=== PATIENT | male | born 1965 | race Caucasian/White ===

== ENCOUNTER → 2025-03-29 | Outpatient (CLI) | payer SELFPAY | END | disposition home or self-care (01) | DX: R10.11 Right upper quadrant pain (principal) | CPT/HCPCS: 76705 ==

== ENCOUNTER → 2025-04-23 | Outpatient (CLI) | payer OTHER, SELFPAY ==
[2025-04-23 18:35] LABS: Ferritin 95 ng/mL (37-417)
[2025-04-23 19:20] LABS: CRP < 3.00 mg/L (0.0-3.0); Iron 91 ug/dL (65-175); LDH 198 U/L (87-241)
[2025-04-25 12:08] LABS: Anti-Chromatin <0.2 AI (0.0-0.9); Anti-Jo <0.2 AI (0.0-0.9); Anti-dsDNA Ab 3 IU/mL (0-9); SJOGREN'S Anti-SS-A test < 0.2 AI (0.0-0.9); SJOGREN'S Anti-SS-B test < 0.2 AI (0.0-0.9)
[2025-04-30 15:08] LABS: Albumin 4.2 g/dL (2.9-4.4); CMV Acute Antibody IgM < 30.0 AU/mL (0.0-29.9); Cytoplasmic Ab (C-ANCA) <1:20 titer (Neg:<1:20); EBV Acute VCA IgM < 36.0 U/mL (0.0-35.9); EBV-VCA IgG 238.0 U/mL (0.0-17.9); Gamma Globulin 1.0 g/dL (0.4-1.8); HEPATITIS B SURFACE AG Negative (Negative); Hep C Antibodies Non Reactive (Non Reactive); Immunoglobulin A 237 mg/dL (90-386); Immunoglobulin G 1073 mg/dL (603-1613); Immunoglobulin M 70 mg/dL (20-172); PROEL- TOTAL PROTEIN 7.0 g/dL (6.0-8.5); Perinuclear Ab (P-ANCA) <1:20 titer (Neg:<1:20); Testosterone, % Free 2.18 % (1.50-4.20); Testosterone, Free 16.31 ng/dL (5.00-21.00)
== END | disposition home or self-care (01) ==
LOC: LAB 16:32
PROVIDERS: Referring Provider Internal Medicine Gastroenterology; Visit Provider Internal Medicine Gastroenterology
DX: R16.2 Hepatomegaly with splenomegaly, not elsewhere classified (principal)
CPT/HCPCS: 36415; 80074; 82085; 82728; 82784; 83036; 83516; 83540; 83615; 84165; 84402; 84403; 85652; 86037; 86140; 86225; 86235; 86255; 86334; 86644; 86645; 86664; 86665

== ENCOUNTER → 2025-05-10 | Outpatient (CLI) | payer OTHER, SELFPAY ==
--- OUTSIDE RECORDS SUMMARY | 2025-05-10 07:15 | XMS RPT_ITS | CCD ---
Author Organization [facility] Care Team Providers Care Optical Systems Engineer Name Role Phone OprisesArlette hyde MD Primary Care Provider OprArlette sharma MD Primary Care Provider Stewart LOAIZA, Nael Unavailable HOLLY SOLORZANO Attending Unavailable OPRISESCU, ARLETTE M Referring Unavailable OPRISESCU, ARLETTE M Primary Care Unavailable Kristopher LOAIZA, Michelle Patel Unavailable [phone] OPRISESCU, ARLETTE Primary Care Provider OPRISESCU, ARLETTE Attending Provider OPRISESCU, ARLETTE Referring Provider OPRISESCU, ARLETTE M Primary Care Unavailable OPRISESCU, ARLETTE M Referring Unavailable OPRISESCU, ARLETTE M Primary Care Unavailable NAEL WILLIAM Referring Unavailable OPRISESCU, ARLETTE Vanessa Primary Care Unavailable SELF Referring Unavailable OPRISESCU, ARLETTE M Attending Unavailable OPRISESCU, ARLETTE M Primary Care Unavailable OPRISESCU, ARLETTE M Attending Unavailable Friend Dr. Destin LEWIS Attending Provider OPRISESCU, ARLETTE Primary Care Provider Unavailabl e OPRISESCU, ARLETTE Referring Provider Unavailable FriendDestin Attending Unavailable SHIVERS, RI Referring Unavailable SHIVERS, RI Primary Care Unavailable SHIVERS, RI Referring Unavailable SHIVERS, RI Attending Unavailable SHIVERS, RI Primary Care Unavailable FriendDestin Referring Unavailable FriendDestin Attending Unavailable Friend Dr. Destin LEWIS Referring Provider Problems Active Problems Problem Classification Problem Date Documented Da te Episodic/Chronic Abdominal pain (3 sources) Right upper quadrant pain; Translations: [Right upper quadrant pain] Onset: 04-25-2025 11-26-2024 Episodic Administrative/social admission (6 sources) Patient encounter status; Translations: [Persons encountering health services in other specified circumstances] 11-22-2023 Episodic Blindness and vision defects (1 source) Eye / vision finding; Translations: [Unspecified visual disturbance] 11-22-2023 Episodic Diabetes mellitus without complication (1 source) Impaired fasting glycemia; Translations: [Impaired fasting glucose] 09-12-2024 Episodic Disorders of lipid metabolism (7 sources) Hypercholesterolemi a; Translations: [Pure hypercholesterolemi a, unspecified] Onset: 09-11-2024 11-22-2023 Chronic Headache; including migraine (1 source) Headache; Translations: [Headache around the eyes] 11-13-2024 Episodic Heart valve disorders (2 sources) Heart murmur; Translations: [Cardiac murmur, unspecified] 11-26-2024 Episodic Malaise and fatigue (1 source) Fatigue; Translations: [Other fatigue] 11-22-2023 Episodic Nutritional deficiencies (3 sources) Vitamin D deficiency; Translations: [Vitamin D deficiency, unspecified] Onset: 09-11-2024 11-22-2023 Chronic Other eye disorders (1 source) Disorder of eye; Translations: [Unspecified disorder of eye and adnexa] 11-13-2024 Episodic Other gastrointestinal disorders (4 sources) Abdominal bloating; Translations: [Abdominal distension (gaseous)] 04-23-2025 Episodic Other gastrointestinal disorders (1 source) Abdominal distension (gaseous); Translations: [Abdominal distension (gaseous)] Onset: 04-23-2025 Episodic Other liver diseases (2 sources) Steatosis of liver; Translations: [Fatty (change of) liver, not elsewhere classified] 04-01-2025 Chronic Other liver diseases (4 sources) Hepatosplenomegaly; Translations: [Hepatomegaly with splenomegaly, not elsewhere classified] 04-23-2025 Episodic Other liver diseases (1 source) Hepatomegaly with splenomegaly, not elsewhere classified; Translations: [Hepatomegaly with splenomegaly, not elsewhere classified] Onset: 04-23-2025 Episodic Other lower respiratory disease (2 sources) Snoring; Translations: [Snoring] 11-22-2023 Episodic Other non-traumatic joint disorders (1 source) Pain in right knee; Translations: [Pain in joint, lower leg] 11-22-2023 Episodic Other upper respiratory disease (2 sources) Other specified disorders of nose and nasal sinuses; Translations: [Other disease of nasal cavity and sinuses] Onset: 11-13-2024 10-09-2024 Episodic Residual codes; unclassified (1 source) Abnormal sensation; Translations: [Other symptoms and signs involving general sensations and perceptions] 11-13-2024 Episodic Spondylosis; intervertebral disc disorders; other back problems (1 source) Low back pain; Translations: [Lumbar pain] 11-22-2023 Episodic Past or Other Problems Problem Classification Problem Date Documented Da te Episodic/Chronic Immunizations and screening for infectious disease (6 sources) Viral screening status; Translations: [Encounter for screening for other viral diseases] Onset: 09-11-2024 11-22-2023 Episodic Other screening for suspected conditions (not mental disorders or infectious disease) (1 source) Encounter for screening for malignant neoplasm of prostate; Translations: [Screening for prostate cancer] Onset: 09-11-2024 Episodic Results Test Name Value Interpretation Reference Range Facility [facility] 04-30-2025 Atypical pANCA <1:20 Normal Neg:<1:20 [facility] Comment on above: Result Comment: The atypical pANCA pattern has been observed in a significant percentage of patients with ulcerative colitis, primary sclerosing cholangitis and autoimmune hepatitis. Performed By: #### L 501.6710, L501.9985, L3100.5310, L3410.2400, L503.6150, L3400.1500, L101.9900, L3100.7000, L3000.0375, L3100.5850, L503.6550, L3100.3425, L3400.1490, L3300.1200, L504.2610, L3100.5440 #### [facility] [address] [place], [place], [id number] Cytoplasmic Ab <1:20 Normal Neg:<1:20 [facility] Comment on above: Performed By: #### L 501.6710, L501.9985, L3100.5310, L3410.2400, L503.6150, L3400.1500, L101.9900, L3100.7000, L3000.0375, L3100.5850, L503.6550, L3100.3425, L3400.1490, L3300.1200, L504.2610, L3100.5440 #### [facility] [address] [facility] [place], [place], [id number] Perinuclear Ab. <1:20 Normal Neg:<1:20 [facility] Comment on above: Result Comment: The presence of positive fluorescence exhibiting P-ANCA or C-ANCA patterns alone is not specific for the diagnosis of Inocencia's Granulomatosis (WG) or microscopic polyangiitis. Decisions about treatment should not be based solely on ANCA IFA results. The International ANCA Group Consensus recommends follow up testing of positive sera with both NJ- 3 and MPO-ANCA enzyme immunoassays. As many as 5% serum samples are positive only by EIA. Ref. AM J Clin Pathol 1999;111:507-513. Performed By: #### L 501.6710, L501.9985, L3100.5310, L3410.2400, L503.6150, L3400.1500, L101.9900, L3100.7000, L3000.0375, L3100.5850, L503.6550, L3100.3425, L3400.1490, L3300.1200, L504.2610, L3100.5440 #### [facility] [address] [facility] [place], [address] Aldolaseon 04-30-2025 ALDOLASE 3.6 U/L Normal 3.3-10.3 [facility] Comment on above: Result Comment: Perf ormed at: [facility] [address] [id number] Ship Fastener: Tom Salazar PhD, Phone: [phone] Performed at: [facility] [address] [id number] Ship Fastener: Diane Navarro MD, Phone: [phone] Performed By: #### L 501.6710, L501.9985, L3100.5310, L3410.2400, L503.6150, L3400.1500, L101.9900, L3100.7000, L3000.0375, L3100.5850, L503.6550, L3100.3425, L3400.1490, L3300.1200, L504.2610, L3100.5440 #### [facility] [address] [place], [place], [id number] CMV Acute Antibody IgMon CMV Ab, IgM < 30.0 Normal 0.0-29.9 [facility] Comment on above: Result Comment: Nega tive <30.0 Equivocal 30.0 - 34.9 Positive >34.9 A positive result is generally indicative of acute infection, reactivation or persistent IgM production. Performed By: #### L 501.6710, L501.9985, L3100.5310, L3410.2400, L503.6150, L3400.1500, L101.9900, L3100.7000, L3000.0375, L3100.5850, L503.6550, L3100.3425, L3400.1490, L3300.1200, L504.2610, L3100.5440 #### [facility] [address] [facility] [place], [address] CMV Antibody IgGon CMV AB IgG > 10.00 High 0.00-0.59 [facility] Comment on above: Result Comment: Nega tive <0.60 Equivocal 0.60 - 0.69 Positive >0.69 Performed By: #### L 501.6710, L501.9985, L3100.5310, L3410.2400, L503.6150, L3400.1500, L101.9900, L3100.7000, L3000.0375, L3100.5850, L503.6550, L3100.3425, L3400.1490, L3300.1200, L504.2610, L3100.5440 #### [facility] [address] [facility] [place], [address] Celiac Disease Profileon ENDOMYSIAL IGA Negative Normal Negative [facility] Comment on above: Performed By: #### L 501.6710, L501.9985, L3100.5310, L3410.2400, L503.6150, L3400.1500, L101.9900, L3100.7000, L3000.0375, L3100.5850, L503.6550, L3100.3425, L3400.1490, L3300.1200, L504.2610, L3100.5440 #### [facility] [address] [facility] [place], [place], [id number] tTG IGA <2 Normal 0-3 [facility] Comment on above: Result Comment: Nega tive 0 - 3 Weak Positive 4 - 10 Positive >10 Tissue Transglutaminase (tTG) has been identified as the endomysial antigen. Studies have demonstr- ated that endomysial IgA antibodies have over 99% specificity for gluten sensitive enteropathy. Performed By: #### L 501.6710, L501.9985, L3100.5310, L3410.2400, L503.6150, L3400.1500, L101.9900, L3100.7000, L3000.0375, L3100.5850, L503.6550, L3100.3425, L3400.1490, L3300.1200, L504.2610, L3100.5440 #### [facility] [address] [facility] [place], [address] EBV Acute Prof IgG / IgMon 0 8- EB Ab VCA, IgG 238.0 U/mL High 0.0-17.9 [facility] Comment on above: Result Comment: Nega tive <18.0 Equivocal 18.0 - 21.9 Positive >21.9 Performed By: #### L 501.6710, L501.9985, L3100.5310, L3410.2400, L503.6150, L3400.1500, L101.9900, L3100.7000, L3000.0375, L3100.5850, L503.6550, L3100.3425, L3400.1490, L3300.1200, L504.2610, L3100.5440 #### [facility] [address] [place], [address] EBV Ab VCA, IgM < 36.0 Normal 0.0-35.9 [facility] Comment on above: Result Comment: Nega tive <36.0 Equivocal 36.0 - 43.9 Positive >43.9 Performed By: #### L 501.6710, L501.9985, L3100.5310, L3410.2400, L503.6150, L3400.1500, L101.9900, L3100.7000, L3000.0375, L3100.5850, L503.6550, L3100.3425, L3400.1490, L3300.1200, L504.2610, L3100.5440 #### [facility] [address] [place], [address] EBV NuAg Ab,IgG > 600.0 High 0.0-17.9 [facility] Comment on above: Result Comment: Nega tive <18.0 Equivocal 18.0 - 21.9 Positive >21.9 Performed By: #### L 501.6710, L501.9985, L3100.5310, L3410.2400, L503.6150, L3400.1500, L101.9900, L3100.7000, L3000.0375, L3100.5850, L503.6550, L3100.3425, L3400.1490, L3300.1200, L504.2610, L3100.5440 #### [facility] [address] [place], [address] INTERPRETATION Comment Normal . [facility] Comment on above: Result Comment: EBV Interpretation Chart Viveros: Antibody Present + Antibody Absent - Interpretation VCA-IgM VCA-IgG EBNA-IgG No previous infection/ - - - Susceptible Primary infection (new + + - or recent) Past Infection +or- + + See comment below* + - - *Results indicate infection with EBV at some time however cannot predict the timing of the infection since antibodies to EBNA usually develop after primary infection or, alternatively, approximately 5-10% of patients with EBV never develop antibodies to EBNA. Performed By: #### L 501.6710, L501.9985, L3100.5310, L3410.2400, L503.6150, L3400.1500, L101.9900, L3100.7000, L3000.0375, L3100.5850, L503.6550, L3100.3425, L3400.1490, L3300.1200, L504.2610, L3100.5440 #### [facility] [address] [place], [place], [id number] Hepatitis Panel Acuteon 08-0 COMMENT Comment Normal . [facility] Comment on above: Result Comment: Not infected with HCV unless early or acute infection is suspected (which may be delayed in an immunocompromised individual), or other evidence exists to indicate HCV infection. Performed By: #### L 501.6710, L501.9985, L3100.5310, L3410.2400, L503.6150, L3400.1500, L101.9900, L3100.7000, L3000.0375, L3100.5850, L503.6550, L3100.3425, L3400.1490, L3300.1200, L504.2610, L3100.5440 #### [facility] [address] [place], [address] HEP B CORE,IgM Negative Normal Negative [facility] Comment on above: Performed By: #### L 501.6710, L501.9985, L3100.5310, L3410.2400, L503.6150, L3400.1500, L101.9900, L3100.7000, L3000.0375, L3100.5850, L503.6550, L3100.3425, L3400.1490, L3300.1200, L504.2610, L3100.5440 #### [facility] [address] [place], [place], [id number] HEP B SURF AG Negative Normal Negative [facility] Comment on above: Performed By: #### L 501.6710, L501.9985, L3100.5310, L3410.2400, L503.6150, L3400.1500, L101.9900, L3100.7000, L3000.0375, L3100.5850, L503.6550, L3100.3425, L3400.1490, L3300.1200, L504.2610, L3100.5440 #### [facility] [address] [place], [place], [id number] HEP C VIRUS AB Non-Reactive Normal Non Reactive [facility] Comment on above: Performed By: #### L 501.6710, L501.9985, L3100.5310, L3410.2400, L503.6150, L3400.1500, L101.9900, L3100.7000, L3000.0375, L3100.5850, L503.6550, L3100.3425, L3400.1490, L3300.1200, L504.2610, L3100.5440 #### [facility] [address] [place], [address] HEPATITIS A-IgM Negative Normal Negative [facility] Comment on above: Result Comment: A ne gative anti-HAV IgM result suggests no recent or current HAV infection. Performed By: #### L 501.6710, L501.9985, L3100.5310, L3410.2400, L503.6150, L3400.1500, L101.9900, L3100.7000, L3000.0375, L3100.5850, L503.6550, L3100.3425, L3400.1490, L3300.1200, L504.2610, L3100.5440 #### [facility] [address] [place], [address] HAILEE + Protein Elect, Serumon 04-30-2025 Albumin [Mass/Vol] 4.2 g/dL Normal 2.9-4.4 [facility] Comment on above: Order Comment: N Performed By: #### L 501.6710, L501.9985, L3100.5310, L3410.2400, L503.6150, L3400.1500, L101.9900, L3100.7000, L3000.0375, L3100.5850, L503.6550, L3100.3425, L3400.1490, L3300.1200, L504.2610, L3100.5440 #### [facility] [address] [place], [address] (864) Albumin/Globulin [Mass ratio] 1.6 {ratio} Normal 0.7-1.7 [facility] Comment on above: Order Comment: N Performed By: #### L 501.6710, L501.9985, L3100.5310, L3410.2400, L503.6150, L3400.1500, L101.9900, L3100.7000, L3000.0375, L3100.5850, L503.6550, L3100.3425, L3400.1490, L3300.1200, L504.2610, L3100.5440 #### [facility] [address] [facility] [place], [address] MFCHY-6-ROXI 0.2 g/dL Normal 0.0-0.4 [facility] Comment on above: Order Comment: N Performed By: #### L 501.6710, L501.9985, L3100.5310, L3410.2400, L503.6150, L3400.1500, L101.9900, L3100.7000, L3000.0375, L3100.5850, L503.6550, L3100.3425, L3400.1490, L3300.1200, L504.2610, L3100.5440 #### [facility] [address] [facility] [place], [address] (396) ZXCYG-5-IOCA 0.6 g/dL Normal 0.4-1.0 [facility] Comment on above: Order Comment: N Performed By: #### L 501.6710, L501.9985, L3100.5310, L3410.2400, L503.6150, L3400.1500, L101.9900, L3100.7000, L3000.0375, L3100.5850, L503.6550, L3100.3425, L3400.1490, L3300.1200, L504.2610, L3100.5440 #### [facility] [address] [place], [address] BETA GLOBULIN 1.0 g/dL Normal 0.7-1.3 [facility] Comment on above: Order Comment: N Performed By: #### L 501.6710, L501.9985, L3100.5310, L3410.2400, L503.6150, L3400.1500, L101.9900, L3100.7000, L3000.0375, L3100.5850, L503.6550, L3100.3425, L3400.1490, L3300.1200, L504.2610, L3100.5440 #### [facility] [address] [facility] [place], [address] GAMMA GLOBULIN 1.0 g/dL Normal 0.4-1.8 [facility] Comment on above: Order Comment: N Performed By: #### L 501.6710, L501.9985, L3100.5310, L3410.2400, L503.6150, L3400.1500, L101.9900, L3100.7000, L3000.0375, L3100.5850, L503.6550, L3100.3425, L3400.1490, L3300.1200, L504.2610, L3100.5440 #### [facility] [address] [facility] [place], [address] Globulin (S) [Mass/Vol] 2.8 g/dL Normal 2.2-3.9 [facility] Comment on above: Order Comment: N Performed By: #### L 501.6710, L501.9985, L3100.5310, L3410.2400, L503.6150, L3400.1500, L101.9900, L3100.7000, L3000.0375, L3100.5850, L503.6550, L3100.3425, L3400.1490, L3300.1200, L504.2610, L3100.5440 #### [facility] [address] [place], [place], [id number] (569) HAILEE RESULT,S Comment Normal . [facility] Comment on above: Order Comment: N Result Comment: No m onoclonality detected. Performed By: #### L 501.6710, L501.9985, L3100.5310, L3410.2400, L503.6150, L3400.1500, L101.9900, L3100.7000, L3000.0375, L3100.5850, L503.6550, L3100.3425, L3400.1490, L3300.1200, L504.2610, L3100.5440 #### [facility] [address] [place], [address] IMMUNOGLOB A QN 237 mg/dL Normal 90-386 [facility] Comment on above: Order Comment: N Performed By: #### L 501.6710, L501.9985, L3100.5310, L3410.2400, L503.6150, L3400.1500, L101.9900, L3100.7000, L3000.0375, L3100.5850, L503.6550, L3100.3425, L3400.1490, L3300.1200, L504.2610, L3100.5440 #### [facility] [address] [place], [place], [id number] (013) IMMUNOGLOB G QN 1073 mg/dL Normal 603-1613 [facility] Comment on above: Order Comment: N Performed By: #### L 501.6710, L501.9985, L3100.5310, L3410.2400, L503.6150, L3400.1500, L101.9900, L3100.7000, L3000.0375, L3100.5850, L503.6550, L3100.3425, L3400.1490, L3300.1200, L504.2610, L3100.5440 #### [facility] [address] [place], [place], [id number] IMMUNOGLOB M QN 70 mg/dL Normal 20-172 [facility] Comment on above: Order Comment: N Performed By: #### L 501.6710, L501.9985, L3100.5310, L3410.2400, L503.6150, L3400.1500, L101.9900, L3100.7000, L3000.0375, L3100.5850, L503.6550, L3100.3425, L3400.1490, L3300.1200, L504.2610, L3100.5440 #### [facility] [address] [place], [place], [id number] M-Javier Not Observed Normal Not Observed [facility] Comment on above: Order Comment: N Performed By: #### L 501.6710, L501.9985, L3100.5310, L3410.2400, L503.6150, L3400.1500, L101.9900, L3100.7000, L3000.0375, L3100.5850, L503.6550, L3100.3425, L3400.1490, L3300.1200, L504.2610, L3100.5440 #### [facility] [address] [place], [place], [id number] NOTE: Comment Normal . [facility] Comment on above: Order Comment: N Result Comment: Prot ein electrophoresis scan will follow via computer, mail, or precision printing worker delivery. Performed By: #### L 501.6710, L501.9985, L3100.5310, L3410.2400, L503.6150, L3400.1500, L101.9900, L3100.7000, L3000.0375, L3100.5850, L503.6550, L3100.3425, L3400.1490, L3300.1200, L504.2610, L3100.5440 #### [facility] [address] [place], [place], [id number] (330) Protein [Mass/Vol] 7.0 g/dL Normal 6.0-8.5 [facility] Comment on above: Order Comment: N Performed By: #### L 501.6710, L501.9985, L3100.5310, L3410.2400, L503.6150, L3400.1500, L101.9900, L3100.7000, L3000.0375, L3100.5850, L503.6550, L3100.3425, L3400.1490, L3300.1200, L504.2610, L3100.5440 #### [facility] [address] [place], [address] (469) Testosterone, Total / Freeon 04-30-2025 TESTOSTER,FREE 16.31 ng/dL Normal 5.00-21.00 [facility] Comment on above: Order Comment: N Performed By: #### L 501.6710, L501.9985, L3100.5310, L3410.2400, L503.6150, L3400.1500, L101.9900, L3100.7000, L3000.0375, L3100.5850, L503.6550, L3100.3425, L3400.1490, L3300.1200, L504.2610, L3100.5440 #### [facility] [address] [place], [place], [id number] (885) TESTOSTER,TOTAL 748 ng/dL Normal 264-916 [facility] Comment on above: Order Comment: N Result Comment: Adul t male reference interval is based on a population of healthy nonobese males (BMI <30) between 19 and 39 years old. kenroy Flor.al. JCEM 2017,102;1209-9894. PMID: [id number]. Performed By: #### L 501.6710, L501.9985, L3100.5310, L3410.2400, L503.6150, L3400.1500, L101.9900, L3100.7000, L3000.0375, L3100.5850, L503.6550, L3100.3425, L3400.1490, L3300.1200, L504.2610, L3100.5440 #### [facility] [address] [place], [place], [id number] TESTOSTERONE,%F 2.18 Normal 1.50-4.20 [facility] Comment on above: Order Comment: N Performed By: #### L 501.6710, L501.9985, L3100.5310, L3410.2400, L503.6150, L3400.1500, L101.9900, L3100.7000, L3000.0375, L3100.5850, L503.6550, L3100.3425, L3400.1490, L3300.1200, L504.2610, L3100.5440 #### [facility] [address] [place], [place], [id number] EFRAÍN Comprehensive Panelon ANTI-DNA (DS)AB 3 IU/mL Normal 0-9 [facility] Comment on above: Result Comment: Nega tive <5 Equivocal 5 - 9 Positive >9 Performed By: #### L 501.6710, L501.9985, L3100.5310, L3410.2400, L503.6150, L3400.1500, L101.9900, L3100.7000, L3000.0375, L3100.5850, L503.6550, L3100.3425, L3400.1490, L3300.1200, L504.2610, L3100.5440 #### [facility] [address] [place], [place], [id number] ANTI-SS-A < 0.2 Normal 0.0-0.9 [facility] Comment on above: Performed By: #### L 501.6710, L501.9985, L3100.5310, L3410.2400, L503.6150, L3400.1500, L101.9900, L3100.7000, L3000.0375, L3100.5850, L503.6550, L3100.3425, L3400.1490, L3300.1200, L504.2610, L3100.5440 #### [facility] [address] [place], [place], [id number] ANTI-SS-B < 0.2 Normal 0.0-0.9 [facility] Comment on above: Performed By: #### L 501.6710, L501.9985, L3100.5310, L3410.2400, L503.6150, L3400.1500, L101.9900, L3100.7000, L3000.0375, L3100.5850, L503.6550, L3100.3425, L3400.1490, L3300.1200, L504.2610, L3100.5440 #### [facility] [address] [facility] [place], [place], [id number] Albumin Elph [Mass/Vol]Order ed By: Destin Gupta on 04-23-2025 Albumin [Mass/Vol] 4.2 g/dL 2.9-4.4 [facility] Aldolase ser/plasOrdered By: Destin Gupta on 04-23-2025 Aldolase [Catalytic activity/Vol] 3.6 mU/mL 3.3-10.3 [facility] Comment on above: Performed at: - [facility] [address] [id number] Director: Tom Salazar PhD, Phone: [phone] at: [address] [id number] Director: Diane Navarro MD, Phone: [phone] CRPon 04-23-2025 C-REACTIVE PROT < 3.00 Normal 0.0-3.0 [facility] Comment on above: Performed By: #### L 501.6710, L501.9985, L3100.5310, L3410.2400, L503.6150, L3400.1500, L101.9900, L3100.7000, L3000.0375, L3100.5850, L503.6550, L3100.3425, L3400.1490, L3300.1200, L504.2610, L3100.5440 #### [facility] [address] [place], [address] Erythrocyte Sed Rateon 04-23 SED RATE 5 mm/hr Normal 0-20 [facility] Comment on above: Performed By: #### L 501.6710, L501.9985, L3100.5310, L3410.2400, L503.6150, L3400.1500, L101.9900, L3100.7000, L3000.0375, L3100.5850, L503.6550, L3100.3425, L3400.1490, L3300.1200, L504.2610, L3100.5440 #### [facility] [address] [place], [address] Erythrocyte sedimentation ra teOrdered By: Destin Gupta on 04-23-2025 ESR (Bld) [Velocity] 5 mm/h 0-20 [facility] Ferritinon 04-23-2025 Ferritin [Mass/Vol] 95 ng/mL Normal 37-417 [facility] Comment on above: Performed By: #### L 501.6710, L501.9985, L3100.5310, L3410.2400, L503.6150, L3400.1500, L101.9900, L3100.7000, L3000.0375, L3100.5850, L503.6550, L3100.3425, L3400.1490, L3300.1200, L504.2610, L3100.5440 #### [facility] [address] [place], [address] Free testosterone percentage Ordered By: Destin Gupta on 04-23-2025 Testosterone Free/Testosterone.total [Mass fraction] 2.18 % 1.50-4.20 [facility] Gastroenterology Visit Repor ton 04-23-2025 Gastroenterology Visit Report [facility] [address] [place] [address] OFFICE VISIT Date of Service: 04/23/25 MR#: [id number] Acct: [id number] Name: NIC GUPTA Rep #: [id number] : 1965 Provider: Destin Gupta DO Age/Sex: 59/M Location: [facility] Status: Signed Intake Intake Visit Reasons: ABDOMINAL PAIN Allergies No Known Allergies Allergy (Verified 04/23/25 15:39) Medications ???Medication ???Instructions ???Recorded ???Confirmed ???Type NK 04/23/25 04/23/25 History PFSH Medical History (Updated 04/23/25 @ 16:[address] Destin Gupta DO) Bloating Hearing problem High cholesterol Heart murmur Family History (Updated 04/23/25 @ 15:42 by Neris Louis) Mother Heart disease Social History (Updated 04/23/25 @ 15:41 by Neris Louis) Smoking Status: Former smoker alcohol intake: never substance use type: does not use what type of physical activity do you participate in: walking frequency: daily HPI HPI Details: NIC GUPTA, is a 59 M who presents to the office today for initial consult. abd US 7.. 1. Fatty infiltration of the liver. 2. Splenomegaly. *BGI established 7 pt reports that his PCP wanted him to follow up with GI after his US that showed fatty liver. Pt reports severe bloating after he eats, states it does not matter what he is eating. Pt also reports brain fog and fatigue for the past 1-2 years. ROS Const Constitutional: Positive for fatigue; No fever(s) or weight change ENT ENT: No difficulty swallowing Gastro GI: Positive for bloating and excessive flatus; No abdominal pain, belching, change in bowel habits, change in stool character, coffee ground emesis, constipation, cramping, diarrhea, heartburn, difficulty swallowing, feeling full early, incontinent of stools, Vomiting blood/hematemesis, Blood in stool, loose stools, Black,tarry stools, nausea/dyspepsia, pain with swallowing, vomiting or other Musc Musculoskeletal: Positive for joint pain, back pain, muscle weakness and stiffness Skin Skin: No yellowing of the eye or itchy eyes Psych Psychiatric: No anxiety and No depression Endo Endocrine: Positive for fatigue; No weight change Aller/Imm Allergy/Immunologic: No itchy eyes Fausto/Lymp Hematologic/Lymphatic: No easy bleeding or easy bruising Exam Const General: cooperative, healthy appearing and comfortable Nutritional Appearance: well nourished Orientation: oriented x3 [facility] Head: normal to inspection Ears: hearing grossly normal bilaterally Face and sinus: normal facial exam Eyes General: appearance normal, both eyes and all related structures Sclera: sclerae normal Neck Neck: normal visual inspection Chest Chest palpation inspection: normal inspection of the chest Resp Effort Inspection: normal respiratory effort Auscultation: Bilateral: Clear to Auscultation Cardio Rate: regular rate Rhythm: regular rhythm GI Inspection: normal to inspection Auscultation: normal bowel sounds Percussion: normal to percussion Palpation: hepatosplenomegaly Assessment and Plan Assessment and Plan (1) Hepatosplenomegaly: Status: Acute (2) Bloating: Status: Acute Plan: 59-year-old male presenting with hepatosplenomegaly, fatigue, and weakness???warrants a thorough investigation to determine the underlying cause.???The patient reports a gradual onset of fatigue and weakness over the past several months, accompanied by intermittent abdominal pain.???He notes increased difficulty with physical activity and mental tasks.???No fever, chills, or significant weight loss reported.This combination of symptoms can be associated with various conditions, including liver disease, hematologic malignancies, and infections. Possible Causes: Hepatomegaly can be a sign of various liver conditions such as cirrhosis, hepatitis (viral or autoimmune), or liver cancer.??? Hematologic Malignancies:Conditions like lymphoma, leukemia, or myeloproliferative disorders can cause both hepatomegaly and splenomegaly. ???Infections:Viral infections (e.g., Aurora-Webb virus, cytomegalovirus, hepatitis viruses), bacterial infections (e.g., brucellosis), parasitic infections , and fungal infections can all lead to hepatosplenomegaly. ???Autoimmune Diseases:Autoimmune conditions like rheumatoid arthritis and systemic lupus erythematosus can also cause splenomegaly, sometimes accompanied by neutropenia (Felty syndrome).??? Infiltrative Diseases:Rare disorders like Gaucher disease, amyloidosis, and sarcoidosis can cause both hepatomegaly and splenomegaly due to tissue infiltration.??? Other:Metabolic disorders, congestive heart failure, and certain medications can also contribute to hepatosplenomegaly.??? Symptoms: Fatigue and Weakness:.These are common symptoms in many c (more content not included)... Normal [facility] Hemoglobin A1con 04-23-2025 HbA1c (Bld) [Mass fraction] 5.3 % Normal <=5.6 [facility] Comment on above: Result Comment: Norm al < 5.7 % Prediabetic 5.7 - 6.4 % Diabetic >or= 6.5 % Please note range changes. Performed By: #### L 501.6710, L501.9985, L3100.5310, L3410.2400, L503.6150, L3400.1500, L101.9900, L3100.7000, L3000.0375, L3100.5850, L503.6550, L3100.3425, L3400.1490, L3300.1200, L504.2610, L3100.5440 #### [facility] [address] [place], [place], [id number] Hemoglobin A1c percentageOrd ered By: Destin Gupta on 04-23-2025 HbA1c (Bld) [Mass fraction] 5.3 % <5.7 [facility] Comment on above: Normal < 5.7 % Predi abetic 5.7 - 6.4 % Diabetic >or= 6.5 % Please note range changes. Interpretation of serum or p lasma protein pattern by immunofixation (narrative resultOrdered By: Destin Gupta on 04-23-2025 Protein Fractions Immunofixation Primitivo [Interp] Not Observed g/dL Not Observed [facility] Ironon 04-23-2025 Iron [Mass/Vol] 91 ug/dL Normal 65-175 [facility] Comment on above: Performed By: #### L 501.6710, L501.9985, L3100.5310, L3410.2400, L503.6150, L3400.1500, L101.9900, L3100.7000, L3000.0375, L3100.5850, L503.6550, L3100.3425, L3400.1490, L3300.1200, L504.2610, L3100.5440 #### [facility] [address] [place], [place], [id number] Iron measurement (mass/mass) Ordered By: Destin Gupta on 04-23-2025 Iron (Unsp spec) [Mass/Mass] 91 ug/dL 65-175 [facility] LDHon 04-23-2025 LDH 198 U/L Normal 87-241 [facility] Comment on above: Order Comment: 1 Performed By: #### L 501.6710, L501.9985, L3100.5310, L3410.2400, L503.6150, L3400.1500, L101.9900, L3100.7000, L3000.0375, L3100.5850, L503.6550, L3100.3425, L3400.1490, L3300.1200, L504.2610, L3100.5440 #### [facility] [address] [facility] [address] [place], [place], [id number] Lactate dehydrogenase (LDH) measurementOrdered By: Destin Gupta on 04-23-2025 LDH [Catalytic activity/Vol] 198 U/L 87-241 [facility] No Panel InformationOrdered By: Destin Gupta on 04-23-2025 Addendum Document Comment . [facility] Comment on above: Protein electrophore sis scan will follow via computer,mail, or precision printing worker delivery. Hepatitis C Antibody Comment Comment . [facility] Comment on above: Not infected with HC V unless early or acute infection issuspected (which may be delayed in an immunocompromisedindividual), or other evidence exists to indicate HCVinfection. Serum DNA double strand anti body assay (units/volume)Ordered By: Destin Gupta on 04-23-2025 DNA double strand Ab Qn (S) 3 [IU]/mL 0-9 [facility] Comment on above: Negative <5 Equivoca l 5 - 9 Positive >9 Serum Aurora Webb virus cap tavo IgM antibody assay (units/volume)Ordered By: Destin Gupta on 04-23-2025 EBV capsid IgM Qn (S) [arb'U]/mL 0.0-35.9 [facility] Comment on above: Negative <36.0 Equiv ocal 36.0 - 43.9 Positive >43.9 Serum Aurora Webb virus nuc lear IgG antibody assay (units/volume)Ordered By: Destin Gupta on 04-23-2025 EBV nuclear IgG Qn (S) > 600.0 U/mL High 0.0-17.9 [facility] Comment on above: Negative <18.0 Equiv ocal 18.0 - 21.9 Positive >21.9 Serum Scl-70 antibody assay (units/volume)Ordered By: Destin Gupta on 04-23-2025 SCL-70 extractable nuclear Ab Qn (S) <0.2 AI 0.0-0.9 [facility] Comment on above: Previous reported re sult: TNP AIEdited by: ADA on 04/25/25:1208 AMENDED REPORT 04/25/25 1208 ANTISCLER previously reported as: Test not performed Serum classic neutrophil cyt oplasmic antibody assay (units/volume)Ordered By: Destin Gupta on 04-23-2025 Neutrophil cytoplasmic Ab.classic Qn (S) <1:20 titer Neg:<1:20 [facility] Serum globulin measurement ( mass/volume)Ordered By: Destin Gupta on 04-23-2025 Globulin (S) [Mass/Vol] 2.8 g/dL 2.2-3.9 [facility] Serum or plasma C reactive p rotein measurement (mass/volume)Ordered By: Destin Gupta on 04-23-2025 CRP [Mass/Vol] mg/L 0.0-3.0 [facility] Serum or plasma IgA measurem ent (mass/volume)Ordered By: Destinmemo Gupta on 04-23-2025 IgA [Mass/Vol] 237 mg/dL 90-386 [facility] Serum or plasma IgG measurem ent (mass/volume)Ordered By: Destin Gupta on 04-23-2025 IgG [Mass/Vol] 1073 mg/dL 603-1613 [facility] Serum or plasma alpha 1 glob ulin measurement by electrophoresis (mass/volume)Ordered By: Destin Gupta on 04-23-2025 Alpha 1 globulin Elph [Mass/Vol] 0.2 g/dL 0.0-0.4 [facility] Alpha 1 globulin Elph [Mass/Vol] 0.6 g/dL 0.4-1.0 [facility] Serum or plasma beta globuli n measurement by electrophoresis (mass/volume)Ordered By: Destin Gupta on 04-23-2025 Beta globulin Elph [Mass/Vol] 1.0 g/dL 0.7-1.3 [facility] Serum or plasma cytomegalovi mauricio (CMV) IgG antibody assay (units/volume)Ordered By: Destin Gupta on 04-23-2025 CMV IgG Qn > 10.00 U/mL High 0.00-0.59 [facility] Comment on above: Negative <0.60 Equiv ocal 0.60 - 0.69 Positive >0.69 Serum or plasma cytomegalovi mauricio (CMV) IgM antibody assay (units/volume)Ordered By: Destin Gupta on 04-23-2025 CMV IgM Qn < 30.0 AU/mL 0.0-29.9 [facility] Comment on above: Negative <30.0 Equiv ocal 30.0 - 34.9 Positive >34.9A positive result is generally indicative of acuteinfection, reactivation or persistent IgM production. Serum or plasma ferritin mario surement (mass/volume)Ordered By: Destin Gupta on 04-23-2025 Ferritin [Mass/Vol] 95 ng/mL 37-417 [facility] Serum or plasma free testost erone measurement (mass/volume)Ordered By: Destin Gupta on 04-23-2025 Testosterone Free [Mass/Vol] 16.31 ng/dL 5.00-21.00 [facility] Serum or plasma gamma globul in measurement by electrophoresis (mass/volume)Ordered By: Destin Gupta on 04-23-2025 Gamma globulin Elph [Mass/Vol] 1.0 g/dL 0.4-1.8 [facility] Serum or plasma hepatitis B virus surface antigen detection by immunoassayOrdered By: Destin Gupta on 04-23-2025 HBV surface Ag IA Ql Negative Negative [facility] Serum or plasma immunoelectr ophoresis interpretation (nominal result)Ordered By: Destin Gupta on 04-23-2025 Interpretation IEP [Interp] Comment . [facility] Comment on above: No monoclonality det ected. Serum or plasma protein mesfin urement (mass/volume)Ordered By: Destindestinee Gupta on 04-23-2025 Protein [Mass/Vol] 7.0 g/dL 6.0-8.5 [facility] Serum perinuclear neutrophil cytoplasmic antibody titer by immunofluorescenceOrdered By: Destinmemo Gupta on 04-23-2025 Neutrophil cytoplasmic Ab.perinuclear IF (S) [Titer] <1:20 titer Neg:<1:20 [facility] Comment on above: The presence of posi tive fluorescence exhibiting P-ANCA orC-ANCA patterns alone is not specific for the diagnosis ofWegener's Granulomatosis (WG) or microscopic polyangiitis.Decisions about treatment should not be based solely onANCA IFA results. The International ANCA Group Consensusrecommends follow up testing of positive sera with both NJ-3 and MPO-ANCA enzyme immunoassays. As many as 5% serumsamples are positive only by EIA. Ref. AM J Clin Wydhrn2595;111:507-513. Serum tissue transglutaminas e (tTG) IgA antibody assay (units/volume)Ordered By: Destinmemo Gupta on 04-23-2025 tTG IgA Qn (S) <2 U/mL 0-3 [facility] Comment on above: Negative 0 - 3 Weak Positive 4 - 10 Positive >10 Tissue Transglutaminase (tTG) has been identified as the endomysial antigen. Studies have demonstr- ated that endomysial IgA antibodies have over 99% specificity for gluten sensitive enteropathy. Testosterone, totalOrdered B y: Destin Gupta on 04-23-2025 Testosterone [Mass/Vol] 748 ng/dL 264-916 [facility] Comment on above: Adult male reference interval is based on a population ofhealthy nonobese males (BMI <30) between 19 and 39 yearsold. Basia et.al. JCEM 2017,102;0151-7788. PMID:[id number]. Keith 04-01-2025 CNPN Telephone ([facility]) -------- DAMIENNIC Benavidez ([id number]) 1965 M Date Time Provider Department 04/01/25 ARLETTE HERNANDEZ [facility] During your visit today, we recorded the following information about you: Estephanie Pozo MA 04/01/2025 8:54 AM Signed Received fax from [facility] [phone] Re: Ultrasound of abdomen completed on 03/29/2025 Results placed in provider mail folder for review ISHAN Aceves Gina M, MD 04/01/2025 9:10 AM Signed Please call the patient with the results: US liver showed fatty liver. Please advise to keep low fat diet, abstain from alcohol if any and schedule with sleeve presser operator for further evaluation of the fatty liver. Order filed. Estephanie Pozo MA 04/01/2025 10:39 AM Signed Left message for patient to contact office back Please deliver message to patient (ok for PSS to deliver message) and document ISHAN Aceves Kylie 04/01/2025 11:41 AM Signed Message was given to the patient. Patient states that he is scheduled with a sleeve presser operator at the end of the month at [facility]. Tess Luna Allergies As of Date: 04/01/2025 (No Known Allergies) Date Reviewed: 11/26/2024 Reviewed by: Estephanie Pozo MA - Fully Assessed Reason for Visit: u/s of abdomen results [Other] Primary Visit Diagnosis:Fatty liver [K76.0] Order(s):CONSULT TO GASTROENTEROLOGY [9010] Order #: [id number]: 1 FUTURE Meds Comments as of 11/22/2023: MVI, vitamin b complex, vitamin d, K-7 Problem List As Of Date: 04/01/2025 (None) Encounter Status:Closed by TESS LUNA on 04/01/25 Normal [facility] Abdomen Limitedon 03-29-2025 Abdomen Limited [facility] [address] [place], [place] [id number] Abdomen Limited MR#: [id number] Acct: [id number] Name: NIC GUPTA Rep #: [id number] : 1965 M 59 From: Todd Melgar MD PCP: ARLETTE HERNANDEZ Status: REG CLI Study: Abdomen Limited Date of Exam: 03/29/25 Exam# [id number] Ordering Dr: ARLETTE HERNANDEZ EXAM: US Abdomen Limited, Right Upper Quadrant CLINICAL INDICATION: ABD PAIN TECHNIQUE: Real-time ultrasound of the right upper quadrant with image documentation. COMPARISON: No relevant prior studies available. FINDINGS: LIVER: Liver measures up to 17.2 cm. Fatty infiltration of the liver. No intrahepatic bile duct dilation. GALLBLADDER: Negative Anderson's sign was reported by the poultry slaughterer. No gallstones. COMMON BILE DUCT: Unremarkable as visualized. No stones. No dilation. Common bile duct measures 0.3 cm in diameter. PANCREAS: Pancreas not visualized secondary to bowel gas. RIGHT KIDNEY: Unremarkable. No stones. No hydronephrosis. The right kidney measures 12.6 x 5.1 x 4.7 cm. SPLEEN: Spleen measures of the 13.0 cm. US/Abdomen Limited IMPRESSION: 1. Fatty infiltration of the liver. 2. Splenomegaly. Reading Location: [facility] CC: ARLETTE HERNANDEZ Dice Table Person: Signed Normal [facility] Lipid 1996 panelon 5 Cholesterol [Mass/Vol] 251 mg/dL High <200 [facility] Comment on above: Order Comment: Speci men Type: BLOOD SPECIMEN Ordering Facility: [facility] Address: [address] [place] [address] Result Comment: <200 mg/dL, Desirable 200-239 mg/dL, Borderline high >239 mg/dL, High Performed By: #### 5 5454-3 #### [facility] CLIA [id number] [address] [place] [address] [place] #### 91014-1 #### ODINLUIS M [facility] CLIA [id number] [address] [place] [address] STATES [facility] Cholesterol in HDL [Mass/Vol] 48 mg/dL Normal >39 [facility] Comment on above: Order Comment: Speci men Type: BLOOD SPECIMEN Ordering Facility: [facility] Address: [address] [place] [address] Result Comment: 40-5 9 mg/dL, Acceptable >59 mg/dL, High: Negative risk factor for coronary heart disease <40 mg/dL, Low: Positive risk factor for coronary heart disease Performed By: #### 5 5454-3 #### [facility] CLIA [id number] [address] [place] [address] [place] #### 32328-9 #### ODINLUIS M [facility] CLIA [id number] [address] [place] [address] STATES [facility] Cholesterol in LDL [Mass/Vol] 191 mg/dL High <100 [facility] Comment on above: Order Comment: Speci men Type: BLOOD SPECIMEN Ordering Facility: [facility] Address: [address] [place] [address] Result Comment: <100 mg/dL, Optimal 100-129 mg/dL, Near optimal/above optimal 130-159 mg/dL, Borderline high 160-189 mg/dL, High >189 mg/dL, Very high Secondary prevention optimal LDL Cholesterol levels are recommended to be <70 mg/dL LDL cholesterol is calculated using the Alvarez-NIH equation. Performed By: #### 5 5454-3 #### [facility] CLIA [id number] [address] [place] [address] [place] #### 00637-1 #### [place] [facility] CLIA [id number] [address] [place] [address] Cholesterol in LDL/Cholesterol in HDL [Mass ratio] 3.98 {ratio} High <2.54 [facility] Comment on above: Order Comment: Speci men Type: BLOOD SPECIMEN Ordering Facility: [facility] Address: [address] [place] [address] Result Comment: Alberto bo: 1. National Cholesterol Education Program ATP III Guideline At-A-Glance Quick Desk Reference: National Heart, Lung, and Blood Andrews. National Institutes of Health. 2001: NIH Publication No. 01-3305. 2. An International Atherosclerosis Society position paper: global recommendations for the management of dyslipidemia: executive summary, Atherosclerosis. 2014: 232(2):410-413. Performed By: #### 5 5454-3 #### [facility] CLIA [id number] [address] [place] [address] [place] #### 20469-9 #### [facility] CLIA [id number] [address] [place] [address] Cholesterol in VLDL [Mass/Vol] 14 mg/dL Normal <30 [facility] Comment on above: Order Comment: Ashley pedraza Type: BLOOD SPECIMEN Ordering Facility: [facility] Address: [address] [place] [address] Performed By: #### 5 5454-3 #### [facility] CLIA [id number] [address] [place] [address] #### 62490-0 #### [facility] CLIA [id number] [address] [place] [address] Cholesterol non HDL [Mass/Vol] 203 mg/dL High <130 [facility] Comment on above: Order Comment: Ashley pedraza Type: BLOOD SPECIMEN Ordering Facility: [facility] Address: [address] [place] [address] Result Comment: <130 mg/dL, Optimal 130-159 mg/dL, Near optimal/above optimal 160-189 mg/dL, Borderline high 190-219 mg/dL, High >219 mg/dL, Very high Secondary prevention optimal non HDL Cholesterol levels are recommended to be <100 mg/dL Performed By: #### 5 5454-3 #### [facility] CLIA [id number] [address] [place] [address] [place] #### 59625-6 #### ODINLUIS M [facility] CLIA [id number] [address] [place] [address] [place] Cholesterol.total/Choles terol in HDL [Mass ratio] 5.23 {ratio} High <5.10 [facility] Comment on above: Order Comment: Speci men Type: BLOOD SPECIMEN Ordering Facility: [facility] Address: [address] [place] [address] Performed By: #### 5 5454-3 #### [facility] CLIA [id number] [address] [place] [address] [place] #### 47277-7 #### ODINLUIS M [facility] CLIA [id number] [address] [place] [address] [place] [facility] FASTING TIME 12 hrs Normal [facility] Comment on above: Order Comment: Speci men Type: BLOOD SPECIMEN Ordering Facility: [facility] Address: [address] [place] [address] Performed By: #### 5 5454-3 #### [facility] CLIA [id number] [address] [place] [address] [place] #### 72694-7 #### [facility] CLIA [id number] [address] [place] [address] [place] Triglyceride [Mass/Vol] 70 mg/dL Normal <150 [facility] Comment on above: Order Comment: Speci men Type: BLOOD SPECIMEN Ordering Facility: [facility] Address: [address] [place] [address] Result Comment: <150 mg/dL, Normal 150-199 mg/dL, Borderline high 200-499 mg/dL, High >499 mg/dL, Very high Performed By: #### 5 5454-3 #### [facility] CLIA [id number] [address] [place] [address] [place] #### 20531-6 #### [place] [facility] CLIA [id number] [address] [place] [address] CNOVon 11-26-2024 CNOV Office Visit ([facility] ) -------- NIC GUPTA ([id number]) 1965 M Date Time Provider Department 11/26/24 5:40 PM ARLETTE HERNANDEZ [facility] During your visit today, we recorded the following information about you: Temperature Pulse Blood pressure Weight 97.7 degrees 75/minute 127/72 87.8 kg Height 1.793 m Arlette Hernandez MD 11/26/2024 6:12 PM Signed Nic Gupta is a 59 year old male who presents for a comprehensive problem evaluation. New concerns today include: Feels well in general, reports no problems or concerns. He had seen ENT and the sinuses were fine, he got an air purifier and feels better. He sees chiropractor for neck adjustments. He had some stiffness neck and found some cervical spine degeneration, had xray done by chiropractor. He had blood work in August, cholesterol and glucose slightly elevated, he was eating more ice cream prior to the blood tests. He reports bloating RUQ chronic , he was told his gallbladder is not working well. He said he had coloscopy in 2018 in [place], no results available. Exercises regularly: Yes Testicular self exam: Yes PAST MEDICAL HISTORY Diagnosis Date Elevated cholesterol PAST SURGICAL HISTORY Procedure Laterality Date APPENDECTOMY 1975 COLONOSCOPY SCREENING 2018, [place], polyps Social History Tobacco Use Smoking status: Former Current packs/day: 0.00 Average packs/day: 1 pack/day for 18.8 years (18.8 ttl pk-yrs) Types: Cigarettes Start date: 09/25/1983 Quit date: 07/19/2002 Years since quittin.3 Smokeless tobacco: Never Substance Use Topics Alcohol use: Not Currently Drug use: Never Family Status Relation Name Status Mo Fa Sis Alive Bro Alive MGMo MGFa PGMo PGFa No partnership data on file REVIEW OF SYSTEMS: GENERAL: No weight loss, malaise or fevers HEENT: Negative for frequent or significant headaches, No changes in hearing or vision, no nose bleeds or other nasal problems NECK: Negative for lumps, goiter, pain and significant neck swelling RESPIRATORY: Negative for cough, hemoptysis, wheezing, COPD, dyspnea or shortness of breath CARDIOVASCULAR: Negative for chest pain, leg swelling, hypertension, CHF or palpitations GI: No nausea, vomiting, or diarrhea : No history of dysuria, frequency or incontinence MUSCULOSKELETAL: Negative for joint pain or swelling, back pain or muscle pain SKIN: Negative for lesions, rash, and itching PSYCH: negative for symptoms of depression and anxiety. HEMATOLOGY/LYMPHOLOGY Negative for prolonged bleeding, bruising easily or swollen nodes ENDOCRINE: Negative for cold or heat intolerance, polyuria, polydipsia and goiter NEURO: negative for migraine headaches PHYSICAL EXAMINATION: BP 127/72 (BP Site: Left Arm, BP Position: Sitting, BP Cuff Size: Regular Adult) Pulse 75 Temp 36.5 ?C (97.7 ?F) (Temporal) Ht 179.3 cm (5' 10.6) Wt 87.8 kg (193 lb 9 oz) SpO2 98% BMI 27.30 kg/m? Body mass index is 27.3 kg/m?. General appearance - Well appearing, alert, in no acute distress, well-hydrated, well nourished. HEENT: Normocephalic, no masses, lesions, tenderness or abnormalities- Anicteric sclera. Pupils are equally round and reactive to light. Extraocular movements are intact. - External ears normal, canals clear - Nares normal, septum midline, mucosa normal, no drainage or sinus tenderness - Lips, mucosa, and tongue normal, teeth and gums normal, oropharynx normal Neck - Supple, no adenopathy; thyroid symmetric, normal size, no bruits Back - Normal exam Lungs - Lungs clear to auscultation. No wheezing, rhonchi, rales. Heart - Positive findings: murmur: 3/6 early systolic blowing blowing murmur URSB and apex Abdomen - Normal abdominal exam, Abdomen soft, non-tender. Bowel sounds normal. No masses, organomegaly Extremities - No deformities, edema, skin discoloration, clubbing or cyanosis. Good capillary refill. Musculoskeletal - No joint swelling, deformity, or tenderness Peripheral pulses - Normal Neuro - Gait normal. Reflexes normal and symmetric. Sensation grossly intact. ASSESSMENT/PLAN: 1. Routine general medical examination at a health care facility - ICD9: V70.0, ICD10: Z00.00 (primary diagnosis) - Counseled on healthy diet and regular exercise 2. Screening for depression - ICD9: V79.0, ICD10: Z13.31 - DEPRESSION SCREENING 3. Encounter for screening examination for other mental health and behavioral disorders - ICD9: V79.8, ICD10: Z13.39 - ANXIETY SCREENING 4. RUQ pain - ICD9: 789.01, ICD10: R10.11 Differential Diagnosis includes Gall bladder colic/cholelithiasis - US ABD RIGHT UPPER QUADRANT 5. Heart murmur - ICD9: 785.2, ICD10: R01.1 - ECHO - PERFLUTREN LIPID MICROSPHERES 1.1 MG/ML INJECTION IN NS 10 ML - SODIUM CHLORIDE 0.9 % (FLUSH) INJECTION SYRING (more content not included)... Normal [facility] CNOVon 11-13-2024 CNOV Office Visit ([facility] ) -------- NIC GUPTA ([id number]) 1965 M Date Time Provider Department 11/13/24 2:40 PM HOLLY SOLORZANO [facility] During your visit today, we recorded the following information about you: Pulse Respiration Blood pressure Weight 80/minute 18/minute 125/76 88.9 kg Height 1.801 m Holly Solorzano PA-C 11/13/2024 3:10 PM Signed HPI: Nic Gupta is a 59 year old male who presents to the office for nasal complaints. Presents c/o constant pressure and pain around his eyes, behind his eyes and radiating into the back of his skull, for three months. No exacerbating or remitting factors. Had last sinus infection 5 years ago. Has mild obstructed breathing primarily at night, with some morning mucus. Denies recurrent sinus infections, chronic runny nose or post-nasal drip, changes in sense of taste or smell, nosebleeds. Has hx of nasal fracture. Denies hx of asthma, allergies, smoking. Denies known allergy to lidocaine/novocaine. Denies hx of nasal/sinus surgery Has used ibuprofen, tylenol with minimal relief. Has seen ophthalmology with no abnormal findings. Had remote hx of what sounds like eustachian tube irrigation and had issues with the procedure on the right. I reviewed the allergies, medications, problem list, PMH/PSH, FmHx and SocHx as documented per EMR. Physical Exam BP 125/76 Pulse 80 Resp 18 Ht 180.1 cm (5' 10.9) Wt 88.9 kg (196 lb) BMI 27.41 kg/m? General: Appears to be in no acute distress, normal affect Head/Face: Facial muscles appear to be functioning normally. Temporomandibular joints move freely, without popping or clicking, are nontender. Neck: There are no palpable salivary gland masses, no thryoid mass or thyromegaly, no neck masses or lymphadenopathy. Eyes: Extraocular movements appear intact. Ears: Right Ear: External ear is without lesions. EAC is without inflammatory changes, free of debris. Visualized TM is not inflamed and with normal landmarks, not retracted or bulging. TM is mobile on pneumatic otoscopy. Left Ear: External ear is without lesions. EAC is without inflammatory changes, free of debris. Visualized TM is not inflamed and with normal landmarks, not retracted or bulging. TM is mobile on pneumatic otoscopy. Nose: External nose is without lesions or deformity. Nasal mucosa appears healthy and without obvious lesions or masses on nasal speculum exam. No purulence. The septum is nonobstructive. The inferior turbinates are not hypertrophic. Oral Cavity/Oropharynx: The lips are without lesions. The tongue and floor of the mouth are without lesions. The soft palate and posterior pharynx are without lesions. Gingival mucosa is without lesions. Tonsils are not enlarged and without lesions. Assessment AND Plan I counseled the patient about the differential diagnosis, natural course, treatment options and answered their questions regarding the Diagnoses and all orders for this visit: Headache around the eyes Facial pressure Eye pressure Pt c/o headache, eye pressure w/o any significant nasal complaints. On rhinoscopy there is bilateral septal deviation w/o mucus/purulence, polyp or mass. No imaging available for review. Patient advised to followup with PCP or neuro regarding chronic headaches as symptoms not consistent with chronic sinusitis, no ENT indications for imaging today. Advised to trial naproxen for headaches. Followup Return if symptoms worsen or fail to improve. Holly Solorzano PA-C Time: 35 minutes: Time includes preparation, obtaining/reviewing history, exam, interpreting results, ordering, counseling/education, referring/communicating and documentation. -Created using voice recognition software, some errors may have occurred. Corrections may be performed at a later date PROCEDURE NOTE Procedure: Nasal endoscopy Description: Topical lidocaine 4% anesthetic and phenylephrine 0.5% decongestant were applied through the nares bilaterally. The 30 degree rigid nasal endoscope was used bilaterally. Septum was deviated bilaterally worse left vs right. There was no pus, polyp or mass in the nose. There was no inferior turbinate hypertrophy. The nasopharynx and eustachian tube orifices were patent, without masses or lesions. There was a good response of the inferior turbinates to topical vasoconstriction. The findings were reviewed with the patient. Holly Solorzano PA-C 11/13/2024 3:10 PM Signed PROCEDURE NOTE Procedure: Nasal endoscopy Description: Topical lidocaine 4% anesthetic and phenylephrine 0.5% decongestant were applied through the nares bilaterally. The 30 degree rigid nasal endoscope was used bilaterally. Septum was deviated bilaterally worse left vs right. There was no pus, polyp or mass in the nose. There was no inferior turbinate hypertrophy. The nasopharynx and eustachian tube (more content not included)... Normal [facility] CNOVon 10-09-2024 CNOV Office Visit ([facility] ) -------- NIC GUPTA ([id number]) 1965 M Date Time Provider Department 10/09/24 8:40 AM ARLETTE HERNANDEZ [facility] During your visit today, we recorded the following information about you: Temperature Pulse Blood pressure Weight 97.6 degrees 74/minute 115/77 89 kg Arlette Hernandez MD 10/09/2024 9:15 AM Signed SUBJECTIVE Nic Gupta is a 59 year old male Patient presents with: Follow Up Nic Gupta is here for results review. He chooses diet, exercise, declines medications C/o pain eye muscles, they feel tight , radiated to the back of the skull, feels like a pressure, for a long time, at least 1 year, starts at the beginning of the day. Feels sinus pressure, denies runny nose, but snores at night and feels his mouth is dry. Denies vision changes, he had eye exam in May 2024. Had seen a slot host recently for a rash,a dvised to use a cream and follow up to see if he needs to see an principal technical specialist. CURRENT MEDICATIONS: No current outpatient medications on file. No current facility-administered medications for this visit. Past medical history was reviewed and updated. Past surgical history was reviewed and updated. Family History: was reviewed and updated. Past social history was reviewed and updated. Patient's Family History and Social History have been reviewed with the patient, and updated as appropriate. Please see relevant section in the [employer] EHR for details. Health Maintenance was reviewed with the patient and updated as appropriate. Please see relevant section in the [employer] EHR for details. REVIEW OF SYSTEMS: GENERAL: Fatigue HEENT: Negative for frequent or significant headaches, No changes in hearing or vision, no nose bleeds or other nasal problems RESPIRATORY: Negative for cough, hemoptysis, wheezing, COPD, dyspnea or shortness of breath CARDIOVASCULAR: Negative for chest pain, leg swelling, hypertension, CHF or palpitations GI: No nausea, vomiting, or diarrhea : No history of dysuria, frequency or incontinence MUSCULOSKELETAL: Negative for joint pain or swelling, back pain or muscle pain PSYCH: negative for symptoms of depression and anxiety. HEMATOLOGY/LYMPHOLOGY Negative for prolonged bleeding, bruising easily or swollen nodes ENDOCRINE: Negative for cold or heat intolerance, polyuria, polydipsia and goiter NEURO: negative for migraine headaches PHYSICAL EXAMINATION: BP 115/77 (BP Site: Left Arm, BP Position: Sitting, BP Cuff Size: Regular Adult) Pulse 74 Temp 36.4 ?C (97.6 ?F) (Temporal) Wt 89 kg (196 lb 3.4 oz) BMI 27.44 kg/m? General Appearance: well appearing, in no acute distress, alert, no palor, no jaundice, no lymphedenopathy Ears: External ears normal, canals clear Nose/Sinuses: Nares normal, septum midline, mucosa normal, no drainage or sinus tenderness Oropharynx: Lips, mucosa, and tongue normal, teeth and gums normal, oropharynx normal Lungs: Lungs clear to auscultation. No wheezing, rhonchi, rales. Heart: RRR without murmur, gallop, or rubs. No ectopy Abdomen: Normal abdominal exam, Abdomen soft, non-tender. Bowel sounds normal. No masses, organomegaly Extremities: Normal exam of the extremities. No clubbing, cyanosis, or edema. Musculoskeletal: No joint swelling, deformity, or tenderness. Peripheral Pulses: Normal Neurologic: Gait normal. cranial nerves and limbs exam is grossly intact. ASSESSMENT/PLAN: 1. Hyperlipidemia, unspecified hyperlipidemia type - ICD9: 272.4, ICD10: E78.5 (primary diagnosis) - Uncontrolled - Control undetermined, due for labs - Counseled on healthy diet and regular exercise - Discussed need for and benefit of weight loss. BMI 27.44 kg/(m2) 2. Screen for colon cancer - ICD9: V76.51, ICD10: Z12.11 - CONSULT TO GASTROENTEROLOGY 3. Snoring - ICD9: 786.09, ICD10: R06.83 - HOME SLEEP APNEA TEST (HSAT) 4. Sinus pressure - ICD9: 478.19, ICD10: J34.89 - Supportive care with plenty of fluids, rest, and analgesia prn. - CONSULT TO ENT Medical Decision Making: Problems: Moderate: 1+ chronic illnesses with change Risk: Moderate: Moderate risk from testing/treatment and Drug management Medical Decision Making Level: 4 - Moderate Arlette Hernandez MD Referring Provider: SELF [200] Allergies As of Date: 10/09/2024 (No Known Allergies) Date Reviewed: 10/09/2024 Reviewed by: Casi Tian MA - Fully Assessed Reason for Visit: Follow Up [171] Primary Visit Diagnosis:Hyperlipidemia , unspecified hyperlipidemia type [E78.5] Other Visit Diagnoses:Screen for colon cancer [Z12.11] Snoring [R06.83] Sinus pressure [J34.89] Order(s):CONSULT TO GASTROENTEROLOGY [9035] Order #: [id number]: 1 FUTURE HOME SLEEP APNEA TEST (HSAT) [2504142] Order #: [id number] FUTURE CONSULT TO ENT [9008] Order #: [id number]: 1 FUTURE Meds Comments as of 11/22/2023: ANTONIO, nichelle (more content not included)... Normal [facility] CNPNon 09-12-2024 CNPN Telephone ([facility]) -------- NIC GUPTA ([id number]) 1965 M Date Time Provider Department 09/12/24 NAEL WILLIAM [facility] During your visit today, we recorded the following information about you: Nael William PA-C 09/12/2024 7:22 AM Signed Can lab add A1c? Cholesterol elevated Recommend low cholesterol diet, exercise Can also recommend Cholesterol medication Mariely Crooks MA 09/12/2024 9:24 AM Signed A1C can be added to labs done 09-11-2024. Will call patient when A1C is resulted. ISHAN Henson Connor, PA-C 09/13/2024 7:50 AM Signed A1c normal Please give below message Mariely Crooks MA 09/13/2024 8:48 AM Signed Patient is aware of message and would like to watch his diet and exercise before starting a medication. Patient will discuss at office visit with Dr. Hernandez in November 2024. ISHAN Henson Gina M, MD 09/13/2024 8:56 AM Signed Noted. Allergies As of Date: 09/12/2024 (Not on File) Date Reviewed: 11/22/2023 Reviewed by: Estephanie Pozo MA - Fully Assessed Reason for Visit: Results [95] Orders [681] Primary Visit Diagnosis:IFG (impaired fasting glucose) [R73.01] Order(s):HEMOGLOBIN A1C [NBXBJ0E] Order #: [id number] FUTURE Meds Comments as of 11/22/2023: MVI, vitamin b complex, vitamin d, K-7 Problem List As Of Date: 09/12/2024 (None) Encounter Status:Closed by MARIELY CROOKS on 09/13/24 Normal [facility] HbA1c (Bld)on 09-12-2024 Average glucose Estimated from glycated hemoglobin (Bld) [Mass/Vol] 91 mg/dL [facility] Comment on above: eAG: (Estimated aver age glucose) is a calculated value from HgbA1c and is solar manufacturer's representative of the average blood glucose level in the last 2-3 month period. HbA1c (Bld) [Mass fraction] 4.8 % 4.3 - 5.6 % [facility] Comment on above: [place] Diabetes As sociation guidelines indicate that patients with HgbA1c in the range 5.7-6.4% are at increased risk for development of diabetes, and intervention by lifestyle modification may be beneficial. HgbA1c greater or equal to 6.5% is considered diagnostic of diabetes. [facility] 25(OH)D3 SerPl-mCncon 2023 25-hydroxyvitamin D3 [Mass/Vol] 32.9 ng/mL Normal 31.0-80.0 [facility] Comment on above: Order Comment: Speci men Type: BLOOD SPECIMEN Ordering Facility: [facility] Address: [address] [place] [address] Result Comment: Clas sification of 25 [place] Vitamin D status: Deficiency/Insufficiency: < or = 30 ng/ml. Sufficiency/Optimal Levels: 31-80 ng/mL Toxicity: > 100 ng/mL. Test performed by chemiluminescent immunoassay. Performed By: #### 1 989-3 #### [facility] CLIA [id number] [address] [place] [address] [place] [address] [place] CBC W Auto Differential pane l (Bld)on 12-18-2024 Basophils (Bld) [#/Vol] 0.04 10*3/uL Normal <0.11 [facility] Comment on above: Order Comment: Speci men Type: BLOOD SPECIMEN Ordering Facility: [facility] Address: [address] [place] [address] Performed By: #### 5 5454-3 #### [facility] CLIA [id number] [address] [place] [address] [place] #### [id number] #### [facility] CLIA [id number] [address] [place] [address] [place] Basophils/100 WBC (Bld) 1.0 % Normal [facility] Comment on above: Order Comment: Speci men Type: BLOOD SPECIMEN Ordering Facility: [facility] Address: [address] [place] [address] Performed By: #### 5 5454-3 #### [facility] CLIA [id number] [address] [place] [address] [place] #### [id number] #### [facility] CLIA [id number] [address] [place] [address] [place] Differential cell count method Nom (Bld) Auto Normal [facility] Comment on above: Order Comment: Speci men Type: BLOOD SPECIMEN Ordering Facility: [facility] Address: [address] [place] [address] Performed By: #### 5 5454-3 #### [facility] CLIA [id number] [address] [place] [address] [place] #### [id number] #### [facility] CLIA [id number] [address] [place] [address] [place] Eosinophils (Bld) [#/Vol] 0.18 10*3/uL Normal <0.46 [facility] Comment on above: Order Comment: Speci men Type: BLOOD SPECIMEN Ordering Facility: [facility] Address: [address] [place] [address] Performed By: #### 5 5454-3 #### [facility] CLIA [id number] [address] [place] [address] [place] #### [id number] #### [facility] CLIA [id number] [address] [place] [address] [place] Eosinophils/100 WBC (Bld) 4.7 % Normal [facility] Comment on above: Order Comment: Speci men Type: BLOOD SPECIMEN Ordering Facility: [facility] Address: [address] [place] [address] Performed By: #### 5 5454-3 #### [facility] CLIA [id number] [address] [place] [address] [place] #### [id number] #### [facility] CLIA [id number] [address] [place] [address] [place] Erythrocyte distribution width (RBC) [Ratio] 12.0 % Normal 11.5-15.0 [facility] Comment on above: Order Comment: Speci men Type: BLOOD SPECIMEN Ordering Facility: [facility] Address: [address] [place] [address] Performed By: #### 5 5454-3 #### [facility] CLIA [id number] [address] [place] [address] [place] #### [id number] #### [facility] CLIA [id number] [address] [place] [address] [place] Hematocrit (Bld) [Volume fraction] 42.3 % Normal 39.0-51.0 [facility] Comment on above: Order Comment: Speci men Type: BLOOD SPECIMEN Ordering Facility: [facility] Address: [address] [place] [address] Performed By: #### 5 5454-3 #### [facility] CLIA [id number] [address] [place] [address] [place] #### [id number] #### [facility] CLIA [id number] [address] [place] [address] [place] Hemoglobin (Bld) [Mass/Vol] 14.6 g/dL Normal 13.0-17.0 [facility] Comment on above: Order Comment: Speci men Type: BLOOD SPECIMEN Ordering Facility: [facility] Address: [address] [place] [address] Performed By: #### 5 5454-3 #### [facility] CLIA [id number] [address] [place] [address] [place] #### 69729-6 #### [facility] CLIA [id number] [address] [place] [address] [place] Immature granulocytes (Bld) [#/Vol] 10*3/uL Normal <0.10 [facility] Comment on above: Order Comment: Speci men Type: BLOOD SPECIMEN Ordering Facility: [facility] Address: [address] [place] [address] Performed By: #### 5 5454-3 #### [facility] CLIA [id number] [address] [place] [address] [place] #### [id number] #### [facility] CLIA [id number] [address] [place] [address] [place] Immature granulocytes/100 WBC (Bld) 0.3 % Normal [facility] Comment on above: Order Comment: Speci men Type: BLOOD SPECIMEN Ordering Facility: [facility] Address: [address] [place] [address] Performed By: #### 5 5454-3 #### [facility] CLIA [id number] [address] [place] [address] [place] #### [id number] #### [facility] CLIA [id number] [address] [place] Lymphocytes (Bld) [#/Vol] 1.28 10*3/uL Normal 1.00-4.00 [facility] Comment on above: Order Comment: Speci men Type: BLOOD SPECIMEN Ordering Facility: [facility] Address: [address] [place] [address] Performed By: #### 5 5454-3 #### [facility] CLIA [id number] [address] [place] [address] [place] #### 93397-8 #### [facility] CLIA [id number] [address] [place] [address] [place] Lymphocytes/100 WBC (Bld) 33.2 % Normal [facility] Comment on above: Order Comment: Speci men Type: BLOOD SPECIMEN Ordering Facility: [facility] Address: [address] [place] [address] Performed By: #### 5 5454-3 #### [facility] CLIA [id number] [address] [place] [address] [place] #### [id number] #### [facility] CLIA [id number] [address] [place] [address] [place] MCH (RBC) [Entitic mass] 32.1 pg Normal 26.0-34.0 [facility] Comment on above: Order Comment: Speci men Type: BLOOD SPECIMEN Ordering Facility: [facility] Address: [address] [place] [address] Performed By: #### 5 5454-3 #### [facility] CLIA [id number] [address] [place] [address] [place] #### [id number] #### [facility] CLIA [id number] [address] [place] [address] [place] MCHC (RBC) [Mass/Vol] 34.5 g/dL Normal 30.5-36.0 [facility] Comment on above: Order Comment: Speci men Type: BLOOD SPECIMEN Ordering Facility: [facility] Address: [address] [place] [address] Performed By: #### 5 5454-3 #### [facility] CLIA [id number] [address] [place] [address] [place] #### [id number] #### [facility] CLIA [id number] [address] [place] [address] [place] MCV (RBC) [Entitic vol] 93.0 fL Normal 80.0-100.[address] [facility] Comment on above: Order Comment: Speci men Type: BLOOD SPECIMEN Ordering Facility: [facility] Address: [address] [place] [address] Performed By: #### 5 5454-3 #### [facility] CLIA [id number] [address] [place] [address] [place] #### 44368-1 #### [facility]IN[facility] M [facility] CLIA [id number] [address] [place] [address] [place] Monocytes (Bld) [#/Vol] 0.33 10*3/uL Normal <0.87 [facility] Comment on above: Order Comment: Speci men Type: BLOOD SPECIMEN Ordering Facility: [facility] Address: [address] [place] [address] Performed By: #### 5 5454-3 #### [facility] CLIA [id number] [address] [place] [address] [place] #### 53798-5 #### [facility] CLIA [id number] [address] [place] [address] [place] Monocytes/100 WBC (Bld) 8.6 % Normal [facility] Comment on above: Order Comment: Speci men Type: BLOOD SPECIMEN Ordering Facility: [facility] Address: [address] [place] [address] Performed By: #### 5 5454-3 #### [facility] CLIA [id number] [address] [place] [address] [place] #### 73085-3 #### [facility] CLIA [id number] [address] [place] [address] [place] Neutrophils (Bld) [#/Vol] 2.01 10*3/uL Normal 1.45-7.50 [facility] Comment on above: Order Comment: Speci men Type: BLOOD SPECIMEN Ordering Facility: [facility] Address: [address] [place] [address] Performed By: #### 5 5454-3 #### [facility] CLIA [id number] [address] [place] [address] [place] #### 99495-6 #### [facility] CLIA [id number] [address] [place] [address] [place] Neutrophils/100 WBC (Bld) 52.2 % Normal [facility] Comment on above: Order Comment: Speci men Type: BLOOD SPECIMEN Ordering Facility: [facility] Address: [address] [place] [address] Performed By: #### 5 5454-3 #### [facility] CLIA [id number] [address] [place] [address] [place] #### 24400-6 #### [facility] CLIA [id number] [address] [place] [address] [place] Nucleated RBC (Bld) [#/Vol] 10*3/uL Normal <0.01 [facility] Comment on above: Order Comment: Speci men Type: BLOOD SPECIMEN Ordering Facility: [facility] Address: [address] [place] [address] Performed By: #### 5 5454-3 #### [facility] CLIA [id number] [address] [place] [address] [place] #### 71040-1 #### [facility] CLIA [id number] [address] [place] [address] [place] Nucleated RBC/100 WBC (Bld) [Ratio] 0.0 /100 WBC Normal [facility] Comment on above: Order Comment: Speci men Type: BLOOD SPECIMEN Ordering Facility: [facility] Address: [address] [place] [address] Performed By: #### 5 5454-3 #### [facility] CLIA [id number] [address] [place] [address] [place] #### 79598-5 #### [facility] CLIA [id number] [address] [place] [address] [place] Platelet mean volume (Bld) [Entitic vol] 10.4 fL Normal 9.0-12.7 [facility] Comment on above: Order Comment: Speci men Type: BLOOD SPECIMEN Ordering Facility: [facility] Address: [address] [place] [address] Performed By: #### 5 5454-3 #### [facility] CLIA [id number] [address] [place] [address] [place] #### 40282-2 #### [facility] CLIA [id number] [address] [place] [address] [place] Platelets (Bld) [#/Vol] 203 10*3/uL Normal 150-400 [facility] Comment on above: Order Comment: Speci men Type: BLOOD SPECIMEN Ordering Facility: [facility] Address: [address] [place] [address] Performed By: #### 5 5454-3 #### [facility] CLIA [id number] [address] [place] [address] [place] #### 42465-7 #### [facility] CLIA [id number] [address] [place] [address] [place] [facility] [place] RBC (Bld) [#/Vol] 4.55 10*6/uL Normal 4.20-6.00 [facility] Comment on above: Order Comment: Speci men Type: BLOOD SPECIMEN Ordering Facility: [facility] Address: [address] [place] [address] Performed By: #### 5 5454-3 #### [facility] CLIA [id number] [address] [place] [address] [place] #### 81623-9 #### [facility] CLIA [id number] [address] [place] [address] [place] WBC (Bld) [#/Vol] 3.85 10*3/uL Normal 3.70-11.00 [facility] Comment on above: Order Comment: Speci men Type: BLOOD SPECIMEN Ordering Facility: [facility] Address: [address] [place] [address] Performed By: #### 5 5454-3 #### [facility] CLIA [id number] [address] [place] [address] [place] #### 19628-1 #### [facility] CLIA [id number] [address] [place] [address] [place] Comprehensive metabolic 2000 panelon 09-11-2024 Albumin [Mass/Vol] 4.2 g/dL Normal 3.9-4.9 [facility] Comment on above: Order Comment: Speci men Type: BLOOD SPECIMEN Ordering Facility: [facility] Address: [address] [place] [address] Performed By: #### 2 4323-8 #### [facility] CLIA [id number] [address] [place] [address] [place] ALP [Catalytic activity/Vol] 58 U/L Normal 38-113 [facility] Comment on above: Order Comment: Speci men Type: BLOOD SPECIMEN Ordering Facility: [facility] Address: [address] [place] [address] Performed By: #### 2 4323-8 #### [facility] CLIA [id number] [address] [place] [address] [place] ALT [Catalytic activity/Vol] 24 U/L Normal 10-54 [facility] Comment on above: Order Comment: Speci men Type: BLOOD SPECIMEN Ordering Facility: [facility] Address: [address] [place] [address] Performed By: #### 2 4323-8 #### [facility] CLIA [id number] [address] [place] [address] [place] Anion gap [Moles/Vol] 9 mmol/L Normal 8-15 [facility] Comment on above: Order Comment: Speci men Type: BLOOD SPECIMEN Ordering Facility: [facility] Address: [address] [place] [address] Performed By: #### 2 4323-8 #### [facility] CLIA [id number] [address] [place] [address] [place] AST [Catalytic activity/Vol] 26 U/L Normal 14-40 [facility] Comment on above: Order Comment: Speci men Type: BLOOD SPECIMEN Ordering Facility: [facility] Address: [address] [place] [address] Performed By: #### 2 4323-8 #### [facility] CLIA [id number] [address] [place] [address] [place] Bilirubin [Mass/Vol] 0.3 mg/dL Normal 0.2-1.3 [facility] Comment on above: Order Comment: Speci men Type: BLOOD SPECIMEN Ordering Facility: [facility] Address: [address] [place] [address] Performed By: #### 2 4323-8 #### [facility] CLIA [id number] [address] [place] [address] [place] Calcium [Mass/Vol] 9.2 mg/dL Normal 8.5-10.2 [facility] Comment on above: Order Comment: Speci men Type: BLOOD SPECIMEN Ordering Facility: [facility] Address: [address] [place] [address] Performed By: #### 2 4323-8 #### [facility] CLIA [id number] [address] [place] [address] [place] Chloride [Moles/Vol] 108 mmol/L High 98-107 [facility] Comment on above: Order Comment: Speci men Type: BLOOD SPECIMEN Ordering Facility: [facility] Address: [address] [place] [address] Performed By: #### 2 4323-8 #### [facility] CLIA [id number] [address] [place] [address] [place] CO2 [Moles/Vol] 25 mmol/L Normal 22-30 [facility] Comment on above: Order Comment: Speci men Type: BLOOD SPECIMEN Ordering Facility: [facility] Address: [address] [place] [address] Performed By: #### 2 4323-8 #### [facility] CLIA [id number] [address] [place] [address] [place] Creatinine [Mass/Vol] 0.79 mg/dL Normal 0.73-1.22 [facility] Comment on above: Order Comment: Speci men Type: BLOOD SPECIMEN Ordering Facility: [facility] Address: [address] [place] [address] Performed By: #### 2 4323-8 #### [facility] CLIA [id number] [address] [place] [address] [place] Creatinine and Glomerular filtration rate.predicted panel (S/P/Bld) 103 mL/min/1.73m??? Normal >=60 [facility] Comment on above: Order Comment: Speci men Type: BLOOD SPECIMEN Ordering Facility: [facility] Address: [address] [place] [address] Result Comment: Jyoti mated Glomerular Filtration Rate (eGFR) is calculated using the 2020 CKD-EPI creatinine equation. This equation utilizes serum creatinine, sex, and age as parameters. The creatinine assay has traceable calibration to isotope dilution-mass spectrometry. Refer to KDIGO guidelines for clinical interpretation. In patients with unstable renal function, e.g. those with acute kidney injury, the eGFR may not accurately reflect actual GFR. Performed By: #### 2 4323-8 #### [facility] CLIA [id number] [address] [place] [address] [place] Glucose [Mass/Vol] 110 mg/dL High 74-99 [facility] Comment on above: Order Comment: Ashley pedraza Type: BLOOD SPECIMEN Ordering Facility: [facility] Address: [address] [place] [address] Result Comment: The [place] Diabetes Association (ADA) provides guidance for cutoff values for fasting glucose and random glucose. The ADA defines fasting as no caloric intake for at least 8 hours. Fasting plasma glucose results between 100 to 125 mg/dL indicate increased risk for diabetes (prediabetes). Fasting plasma glucose results greater than or equal to 126 mg/dL meet the criteria for diagnosis of diabetes. In the absence of unequivocal hyperglycemia, results should be confirmed by repeat testing. In a patient with classic symptoms of hyperglycemia or hyperglycemic crisis, random plasma glucose results greater than or equal to 200 mg/dL meet the criteria for diagnosis of diabetes. Reference: Standards of Medical Care in Diabetes 2016, [place] Diabetes Association. Diabetes Care. 2016.39(Suppl 1). Performed By: #### 2 4323-8 #### [facility] CLIA [id number] [address] [place] [address] [place] Potassium [Moles/Vol] 4.5 mmol/L Normal 3.7-5.1 [facility] Comment on above: Order Comment: Ashley pedraza Type: BLOOD SPECIMEN Ordering Facility: [facility] Address: [address] [place] [address] Performed By: #### 2 4323-8 #### [facility] CLIA [id number] [facility] [place] [address] [place] Protein [Mass/Vol] 6.8 g/dL Normal 6.3-8.0 [facility] Comment on above: Order Comment: Ashley pedraza Type: BLOOD SPECIMEN Ordering Facility: [facility] Address: [address] [place] [address] Performed By: #### 2 4323-8 #### [facility] CLIA [id number] [address] [place] [address] [place] Sodium [Moles/Vol] 142 mmol/L Normal 136-144 [facility] Comment on above: Order Comment: Speci men Type: BLOOD SPECIMEN Ordering Facility: [facility] Address: [address] [place] [address] Performed By: #### 2 4323-8 #### [facility] CLIA [id number] [address] [place] [address] [place] Urea nitrogen [Mass/Vol] 13 mg/dL Normal 9-24 [facility] Comment on above: Order Comment: Speci men Type: BLOOD SPECIMEN Ordering Facility: [facility] Address: [address] [place] [address] Performed By: #### 2 4323-8 #### [facility] CLIA [id number] [address] [place] [address] [place] HCV Ab Ser Qlon 09-11-2024 HCV Ab Ql (S) Negative Normal Negative [facility] Comment on above: Order Comment: Speci men Type: BLOOD SPECIMEN Ordering Facility: [facility] Address: [address] [place] [address] Result Comment: The result suggests no evidence of active infection with Hepatitis C virus. Should recent infection be suspected, repeat testing may be considered 4-6 weeks after this draw. Performed By: #### 1 6128-1 #### [facility] CLIA [id number] [address] [place], [place] [address]K [id number] [place] [address] [place] HIV 1+2 Ab IA Qlon 4 HIV 1 and 2 Ab IA.rapid Nom (S/P/Bld) Normal [facility] Comment on above: Order Comment: Speci men Type: BLOOD SPECIMEN Ordering Facility: [facility] Address: [address] [place] [address] Result Comment: Test not indicated. Performed By: #### 5 5454-3 #### [facility] CLIA [id number] [address] [place] [address] [place] #### 30362-3 #### [facility] CLIA [id number] [address] [place] [address] [place] HIV 1+2 Ab+HIV1 p24 Ag IA Ql Non-Reactive Normal Nonreactive [facility] Comment on above: Order Comment: Speci men Type: BLOOD SPECIMEN Ordering Facility: [facility] Address: [address] [place] [address] Performed By: #### 5 5454-3 #### [facility] CLIA [id number] [address] [place] [address] [place] #### 59582-1 #### [facility] CLIA [id number] [address] [place] [address] [place] HIV immunoassay testing algorithm interpretation (S/P/Bld) [Interp] Normal [facility] Comment on above: Order Comment: Speci men Type: BLOOD SPECIMEN Ordering Facility: [facility] Address: [address] [place] [address] Result Comment: No e vidence of HIV-1 or HIV-2 infection. Should recent infection be suspected, repeat testing may be considered 2-3 weeks after this draw. Leon Rev. Code 3701.243(E): This information has been disclosed to you from confidential records protected from disclosure by state law. ???You shall make no further disclosure of this information without the specific, written, and informed release of the individual to whom it pertains or as otherwise permitted by state law. A general authorization for the release of medical or other information is not sufficient for the purpose of the release of HIV test results or diagnoses. Performed By: #### 5 5454-3 #### [facility] CLIA [id number] [address] [place] [address] [place] #### 00838-0 #### [facility] CLIA [id number] [address] HbA1c (Bld)on 09-11-2024 Average glucose Estimated from glycated hemoglobin (Bld) [Mass/Vol] 91 mg/dL Normal [facility] Comment on above: Order Comment: Ashley pedraza Type: BLOOD SPECIMEN Ordering Facility: [facility] Address: [address] [place] [address] Result Comment: eAG: (Estimated average glucose) is a calculated value from HgbA1c and is solar manufacturer's representative of the average blood glucose level in the last 2-3 month period. Performed By: #### 5 5454-3 #### [facility] CLIA [id number] [address] [place] [address] #### 45172-5 #### [facility] CLIA [id number] [address] [place] [address] STATES [facility] HbA1c (Bld) [Mass fraction] 4.8 % Normal 4.3-5.6 [facility] Comment on above: Order Comment: Ashley pedraza Type: BLOOD SPECIMEN Ordering Facility: [facility] Address: [address] [place] [address] Result Comment: Amer ican Diabetes Association guidelines indicate that patients with HgbA1c in the range 5.7-6.4% are at increased risk for development of diabetes, and intervention by lifestyle modification may be beneficial. HgbA1c greater or equal to 6.5% is considered diagnostic of diabetes. Performed By: #### 5 5454-3 #### [facility] CLIA [id number] [address] [place] [address] #### 07776-1 #### [facility] CLIA [id number] [address] [place] [address] [place] Lipid 1996 panelon 4 Cholesterol [Mass/Vol] 217 mg/dL High <200 [facility] Comment on above: Order Comment: Ashley pedraza Type: BLOOD SPECIMEN Ordering Facility: [facility] Address: [address] [place] [address] Result Comment: <200 mg/dL, Desirable 200-239 mg/dL, Borderline high >239 mg/dL, High Performed By: #### 5 5454-3 #### [facility] CLIA [id number] [address] [place] [address] [place] #### 17725-0 #### [facility] CLIA [id number] [address] [place] [address] Cholesterol in HDL [Mass/Vol] 47 mg/dL Normal >39 [facility] Comment on above: Order Comment: Speci men Type: BLOOD SPECIMEN Ordering Facility: [facility] Address: [address] [place] [address] Result Comment: 40-5 9 mg/dL, Acceptable >59 mg/dL, High: Negative risk factor for coronary heart disease <40 mg/dL, Low: Positive risk factor for coronary heart disease Performed By: #### 5 5454-3 #### [facility] CLIA [id number] [address] [place] [address] [place] #### 28412-6 #### [facility] CLIA [id number] [address] [place] [address] Cholesterol in LDL [Mass/Vol] 153 mg/dL High <100 [facility] Comment on above: Order Comment: Speci men Type: BLOOD SPECIMEN Ordering Facility: [facility] Address: [address] [place] [address] Result Comment: <100 mg/dL, Optimal 100-129 mg/dL, Near optimal/above optimal 130-159 mg/dL, Borderline high 160-189 mg/dL, High >189 mg/dL, Very high Secondary prevention optimal LDL Cholesterol levels are recommended to be < 70 mg/dL Performed By: #### 5 5454-3 #### [facility] CLIA [id number] [address] [place] [address] [place] #### 20772-8 #### [facility] CLIA [id number] [facility] [place] [address] [place] [facility] Cholesterol in LDL/Cholesterol in HDL [Mass ratio] 3.26 {ratio} High <2.54 [facility] Comment on above: Order Comment: Ashley pedraza Type: BLOOD SPECIMEN Ordering Facility: [facility] Address: [address] [place] [address] Result Comment: Refe anupam: 1. National Cholesterol Education Program ATP III Guideline At-A-Glance Quick Desk Reference: National Heart, Lung, and Blood Andrews. National Institutes of Health. 2001: NIH Publication No. 01-3305. 2. An International Atherosclerosis Society position paper: global recommendations for the management of dyslipidemia: executive summary, Atherosclerosis. 2014: 232(2):410-413. Performed By: #### 5 5454-3 #### [facility] CLIA [id number] [address] [place] [address] [place] #### 55886-6 #### [facility] CLIA [id number] [address] [place] [address] STATES [facility] Cholesterol in VLDL [Mass/Vol] 17 mg/dL Normal <30 [facility] Comment on above: Order Comment: Ashley pedraza Type: BLOOD SPECIMEN Ordering Facility: [facility] Address: [address] [place] [address] Performed By: #### 5 5454-3 #### [facility] CLIA [id number] [address] [place] [address] [place] #### 92177-9 #### [facility] CLIA [id number] [address] [place] [address] [place] Cholesterol non HDL [Mass/Vol] 170 mg/dL High <130 [facility] Comment on above: Order Comment: Ashley pedraza Type: BLOOD SPECIMEN Ordering Facility: [facility] Address: [address] [place] [address] Result Comment: <130 mg/dL, Optimal 130-159 mg/dL, Near optimal/above optimal 160-189 mg/dL, Borderline high 190-219 mg/dL, High >219 mg/dL, Very high Secondary prevention optimal non HDL Cholesterol levels are recommended to be <100 mg/dL Performed By: #### 5 5454-3 #### [facility] CLIA [id number] [address] [place] [address] [place] #### 50084-1 #### [facility] CLIA [id number] [address] [place] [address] [place] Cholesterol.total/Choles terol in HDL [Mass ratio] 4.62 {ratio} Normal <5.10 [facility] Comment on above: Order Comment: Speci men Type: BLOOD SPECIMEN Ordering Facility: [facility] Address: [address] [place] [address] Performed By: #### 5 5454-3 #### [facility] CLIA [id number] [address] [place] [address] [place] #### 27320-3 #### [facility] CLIA [id number] [address] [place] [address] [place] [facility] FASTING TIME 12 hrs Normal [facility] Comment on above: Order Comment: Speci men Type: BLOOD SPECIMEN Ordering Facility: [facility] Address: [address] [place] [address] Performed By: #### 5 5454-3 #### [facility] CLIA [id number] [address] [place] [address] [place] #### 35387-2 #### [facility] CLIA [id number] [address] [place] [address] [place] Triglyceride [Mass/Vol] 86 mg/dL Normal <[address] [facility] Comment on above: Order Comment: Speci men Type: BLOOD SPECIMEN Ordering Facility: [facility] Address: [address] [place] [address] Result Comment: <150 mg/dL, Normal 150-199 mg/dL, Borderline high 200-499 mg/dL, High >499 mg/dL, Very high Performed By: #### 5 5454-3 #### [facility] CLIA [id number] [address] [place] [address] [place] #### 16733-6 #### [facility] CLIA [id number] [facility] [place] [address] [place] PSA/PROSTATE SPECIFIC ANTIGE N SCREENINGon 09-11-2024 Prostate specific Ag [Mass/Vol] 1.12 ng/mL Normal <2.60 [facility] Comment on above: Order Comment: Speci men Type: BLOOD SPECIMEN Ordering Facility: [facility] Address: [address] [place] [address] Result Comment: Skyler elke PSA test methodology used is the Electrochemiluminescence Immunoassay by Nehemiah [employer]. Total PSA values by differing methodologies cannot be interchanged. Performed By: #### P SAS1 #### [facility] CLIA [id number] [address] [place] [address] [place] CNPShaylee 09-09-2024 CNPN Telephone ([facility]) -------- NIC GUPTA ([id number]) 1965 M Date Time Provider Department 09/09/24 ARLETTE HERNANDEZ [facility] During your visit today, we recorded the following information about you: Mary Fletcher 09/09/2024 3:28 PM Signed Nic is calling Arlette Hernandez MD today to request Lab Orders / patient orders . Patient has been identified by name and birthdate. Duration of symptoms: N/A Person calling: self Call patient at: at home [phone] (home) [phone] (cell) Was an appointment scheduled: No Closing statement: Results or non-symptom based questions: Thank you for calling [facility], your call will be returned within the next business day. Mary Loja Pss Nael William PA-C 09/09/2024 3:50 PM Signed Filed Wagner Jordan MA 09/10/2024 11:46 AM Signed Left message asking patient to return call regarding below. Please Deliver message Labs were filed and they are fasting Lin Garcia 09/10/2024 12:00 PM Signed Patient aware Allergies As of Date: 09/09/2024 (Not on File) Date Reviewed: 11/22/2023 Reviewed by: Estephanie Pozo MA - Fully Assessed Reason for Visit: Lab Orders [1688] Primary Visit Diagnosis:Vitamin D deficiency [E55.9] Other Visit Diagnoses:Special screening examination for viral disease [Z11.59] Screening for HIV (human immunodeficiency virus) [Z11.4] Screening for prostate cancer [Z12.5] Elevated cholesterol [E78.00] Order(s):LIPID PANEL BASIC [SQLIPB] Order #: [id number] FUTURE COMPREHENSIVE METABOLIC PANEL [SQCMP] Order #: [id number] FUTURE COMPLETE BLOOD COUNT AND DIFFERENTIAL [SQCBCDIF] Order #: [id number] FUTURE HEPATITIS C ANTIBODY IA WITH CONFIRMATION [EUAJAN4H] Order #: [id number] FUTURE HIV 1/2 COMBO WITH REFLEX TO DIFFERENTIATION [SQHIV12] Order #: [id number] FUTURE PSA/PROSTATE SPECIFIC ANTIGEN SCREENING [SQPSAS1] Order #: [id number] FUTURE VITAMIN D 25 HYDROXY [SQVITD] Order #: [id number] FUTURE Meds Comments as of 11/22/2023: MVI, vitamin b complex, vitamin d, K-7 Problem List As Of Date: 09/09/2024 (None) Encounter Status:Closed by LIN GARCIA on 09/10/24 Normal [facility] Vital Signs Date Time Vital Sign Value Performing Clinician Rima simms 11-26-2024 17:43-0500 Body height 179.3 cm Arlette Hernandez MD Work Phone: [facility] 11-26-2024 17:43-0500 Body mass index (BMI) [Ratio] 27.3 kg/m2 Arlette Hernandez MD Work Phone: [facility] 11-26-2024 17:43-0500 Body temperature 97.7 [degF] Arlette Hernandez MD Work Phone: [facility] 11-26-2024 17:43-0500 Body weight 87.8 kg Arlette Hernandez MD Work Phone: [facility] 11-26-2024 17:43-0500 Diastolic blood pressure 72 mm[Hg] Arlette Hernandez MD Work Phone: [facility] 11-26-2024 17:43-0500 Heart rate 75 /min Arlette Hernandez MD Work Phone: [facility] 11-26-2024 17:43-0500 SaO2% (BldA) [Mass fraction] 98 % Arlette Hernandez MD Work Phone: [facility] 11-26-2024 17:43-0500 Systolic blood pressure 127 mm[Hg] Arlette Hernandez MD Work Phone: [facility] 11-13-2024 14:41-0500 Body height 180.1 cm Crystal Solorzano PA-C Work Phone: [facility] 11-13-2024 14:41-0500 Body mass index (BMI) [Ratio] 27.41 kg/m2 Crystal Solorzano PA-C Work Phone: [facility] 11-13-2024 14:41-0500 Body weight 88.91 kg Crystal Solorzano PA-C Work Phone: [facility] 11-13-2024 14:41-0500 Diastolic blood pressure 76 mm[Hg] Crystal Solorzano PA-C Work Phone: [facility] 11-13-2024 14:41-0500 Heart rate 80 /min Crystal Solorzano PA-C Work Phone: [facility] 11-13-2024 14:41-0500 Respiratory rate 18 /min Crystal Solorzano PA-C Work Phone: [facility] 11-13-2024 14:41-0500 Systolic blood pressure 125 mm[Hg] Holly Solorzano PA-C Work Phone: [facility] 10-09-2024 08:42-0500 Body mass index (BMI) [Ratio] 27.44 kg/m2 Arlette Hernandez MD Work Phone: [facility] 10-09-2024 08:42-0500 Body temperature 97.59 [degF] Arlette Hernandez MD Work Phone: [facility] 10-09-2024 08:42-0500 Body weight 89 kg Arlette Hernandez MD Work Phone: [facility] 10-09-2024 08:42-0500 Diastolic blood pressure 77 mm[Hg] Arlette Hernandez MD Work Phone: [facility] 10-09-2024 08:42-0500 Heart rate 74 /min Arlette Hernandez MD Work Phone: [facility] 10-09-2024 08:42-0500 Systolic blood pressure 115 mm[Hg] Arlette Hernandez MD Work Phone: [facility] 11-22-2023 17:13-0500 Body height 180.1 cm Arlette Hernandez MD Work Phone: [facility] 11-22-2023 17:13-0500 Body temperature 97.9 [degF] Arlette Hernandez MD Work Phone: [facility] 11-22-2023 17:13-0500 Body weight 87 kg Arlette Hernandez MD Work Phone: [facility] 11-22-2023 17:13-0500 Diastolic blood pressure 74 mm[Hg] Arlette Hernandez MD Work Phone: [facility] 11-22-2023 17:13-0500 Heart rate 80 /min Arlette Hernandez MD Work Phone: [facility] 11-22-2023 17:130500 SaO2% (BldA) [Mass fraction] 96 % Arlette Hernandez MD Work Phone: [facility] 11-22-2023 17:130500 Systolic blood pressure 117 mm[Hg] Arlette Hernandez MD Work Phone: [facility] Encounters Encounter Date Encounter Type Care Provider Facility Start: 04-23-2025 End: 04-23-2025 Patient encounter procedure Destin Gupta DO -Laboratory Work Phone: Start: 04-23-2025 End: 04-23-2025 ambulatory [facility] Facility:[facility] Start: 04-23-2025 End: 04-23-2025 Patient encounter procedure Destin Gupta DO -[facility] Work Phone: Start: 04-23-2025 End: 04-23-2025 ambulatory ARLETTE OPRISESPRABHAKAR Work Phone: -[facility] Start: 04-01-2025 End: 04-01-2025 Telephone encounter Arlette Hernandez MD Work Phone: Internal Medicine Comment on above: u/s of abdomen resul ts Start: 03-29-2025 End: 03-29-2025 ambulatory ARLETTE OPRISESCU Work Phone: -[facility] Start: 03-29-2025 End: 03-29-2025 Patient encounter procedure ARLETTE OPRISESCU Work Phone: -Ultrasound [facility] Work Phone: Start: 03-29-2025 End: 03-29-2025 ambulatory RI SHIVERS Facility:[facility] Start: 02-19-2025 End: 02-19-2025 Follow-up encounter Arlette Hernandez MD Work Phone: Internal Medicine Start: 02-15-2025 End: 02-15-2025 ambulatory ARLETTE M OPRISESCU Facility:[facility] Start: 11-26-2024 End: 11-26-2024 ambulatory ARLETTE M OPRISESCU Facility:[facility] Start: 11-26-2024 End: 11-26-2024 Patient encounter procedure Arlette Hernandez MD Work Phone: Internal Medicine Comment on above: Routine general medi monico examination at a [facility] facility (Primary Dx); Screening for depression; Encounter for screening examination for other mental health and behavioral disorders; RUQ pain; Heart murmur; Hyperlipidemia, unspecified hyperlipidemia type Start: 11-26-2024 End: 11-26-2024 Patient encounter status Arlette Hernandez MD Work Phone: [facility] Start: 11-13-2024 End: 11-13-2024 Patient encounter procedure Holly Solorzano PA-C [facility] Comment on above: Headache around the eyes; Facial pressure; Eye pressure Start: 11-13-2024 End: 11-13-2024 ambulatory HOLLY SOLORZANO Facility:[facility] Start: 10-09-2024 End: 10-09-2024 ambulatory ARLETTE HERNANDEZ Facility:[facility] Start: 10-09-2024 End: 10-09-2024 Office outpatient visit 25 minutes Arlette Hernandez MD Work Phone: Internal Medicine Comment on above: Hyperlipidemia, unsp ecified hyperlipidemia type (Primary Dx); Screen for colon cancer; Snoring; Sinus pressure Start: 09-12-2024 End: 09-13-2024 Telephone encounter Nael William PA-C Work Phone: Internal Medicine Comment on above: Results; Orders Start: 09-11-2024 End: 09-11-2024 ambulatory ARLETTE HERNANDEZ Facility:[facility] Start: 09-09-2024 End: 09-10-2024 Telephone encounter Arlette Hernandez MD Work Phone: Internal Medicine Comment on above: Lab Orders Start: 11-22-2023 End: 11-22-2023 Patient encounter procedure Arlette Hernandez MD Work Phone: Internal Medicine Comment on above: Encounter to [facility] (Primary Dx); Vision changes; Other fatigue; Special screening examination for viral disease; Screening for HIV (human immunodeficiency virus); Elevated cholesterol; Screening for malignant neoplasm of prostate; Vitamin D deficiency; Lumbar pain; Chronic pain of right knee; Snoring Procedures Date Procedure Procedure Detail Performing Clinician Start: 04-23-2025 Albumin/Globulin ratio ARLETTE OPRISESCU Work Phone: Start: 04-23-2025 Antibody measurement GI NA OPRISESCU Work Phone: Comment on above: The atypical pANCA p attern has been observed in asignificant percentage of patients with ulcerative colitis,primary sclerosing cholangitis and autoimmune hepatitis. Start: 04-23-2025 Antibody to centrome re measurement ARLETTE OPRISESCU Work Phone: Comment on above: Previous reported re sult: TNP AIEdited by: ADA on 04/25/25:1208 AMENDED REPORT 04/25/25 1208 ANTI-CENT B previously reported as: Test not performed Start: 04-23-2025 Antibody to extracta ble nuclear antigen measurement [facility]E [facility] Work Phone: Comment on above: Previous reported re sult: TNP AIEdited by: ADA on 04/25/25:1208 AMENDED REPORT 04/25/25 1208 TIAN Ab previously reported as: Test not performed Start: 04-23-2025 Antibody to INÉS-1 measurement ARLETTE [facility] Work Phone: Comment on above: Previous reported re sult: TNP AIEdited by: ADA on 04/25/25:1208 AMENDED REPORT 04/25/25 1208 ANTI-INÉS previously reported as: Test not performed Start: 04-23-2025 Antibody to lupus La protein measurement [facility]E [facility] Work Phone: Start: 04-23-2025 Antibody to SS-A measurement [facility]TTE [facility] [employer] Work Phone: Start: 04-23-2025 Autoantibody measurement ARLETTE OPRISESCU Work Phone: Comment on above: Previous reported re sult: TNP AIEdited by: ADA on 04/25/25:1208 AMENDED REPORT 04/25/25 1208 ANTICHROMATIN previously reported as: Test not performed Start: 04-23-2025 Endomysial antibody IgA level [facility] Work Phone: Start: 04-23-2025 Aurora-Webb virus c apsid IgG measurement [facility] Work Phone: Comment on above: Negative <18.0 Equiv ocal 18.0 - 21.9 Positive >21.9 Start: 04-23-2025 Aurora-Webb virus s erologic test [facility] Work Phone: Comment on above: EBV Interpretation C [facility]artKey: Antibody Present + Antibody Absent -Interpretation VCA-IgM VCA-IgG EBNA-IgGNo previous infection/ - - -SusceptiblePrimary infection (new + + -or recent)Past Infection +or- + +See comment below* + - -*Results indicate infection with EBV at some time however cannot predict the timing of the infection since antibodies to EBNA usually develop after primary infection or, alternatively, approximately 5-10% of patients with EBV never develop antibodies to EBNA. Start: 04-23-2025 Hepatitis A virus an tibody, IgM type [facility] Work Phone: Comment on above: A negative anti-HAV IgM result suggests no recent orcurrent HAV infection. Start: 04-23-2025 Hepatitis B core ant ibody measurement, IgM type [facility] Work Phone: Start: 04-23-2025 Hepatitis C antibody measurement [facility] Work Phone: Start: 04-23-2025 Immunoglobulin M measurement [facility] Work Phone: Start: 04-23-2025 IS TECHNICIAN antibody measurement [facility] Work Phone: Comment on above: Previous reported re sult: TNP AIEdited by: ADA on 04/25/25:1208 AMENDED REPORT 04/25/25 1208 IS TECHNICIAN Ab previously reported as: Test not performed Start: 03-29-2025 Ultrasonography of abdomen ARLETTE HERNANDEZ Work Phone: Start: 02-15-2025 Lipid 1996 panel - S segundo or Plasma Arlette Hernandez MD Work Phone: Start: 11-26-2024 Adult depression scr eening assessment Arlette Hernandez MD Work Phone: Start: 09-11-2024 Lipid 1996 panel - S segundo or Plasma Nael William PA-C Work Phone: Plan of Treatment Date Care Activity Detail Author Start: 02-15-2030 Lipid panel Lipid Screening [facility] Start: 09-11-2029 Lipid panel Lipid Screening [facility] Start: 09-11-2029 Prostate specific antigen measurement Prostate Cancer Screening Discussion [facility] Start: 09-11-2027 Diabetes Screening Diabetes Screening [facility] Start: 12-09-2025 End: 12-09-2025 Patient encounter procedure 12/09/2025 5:20 PM EDT Office Visit Internal Medicine [id number] [place] [address] [place] [id number] [place] [address] for physical. Internal Medicine Comment on above: for physical. Start: 11-26-2025 Anxiety Screening Anxiety Screening [facility] Start: 11-26-2025 Depression Screening Depression Screening [facility] Start: 11-26-2025 Pneumococcal Vaccine: 50+ (1 of 1 - PCV) Pneumococcal Vaccine: 50+ (1 of 1 - PCV) [facility] Comment on above: Postponed from 2015 (Declined at t his time) Start: 11-26-2025 Shingrix Vaccine (1 of 2) Shingrix Vaccine (1 of 2) [facility] Comment on above: Postponed from 2015 (Declined at t his time) Start: 11-26-2025 Urine microalbumin profile DTaP,Tdap,Td Vaccine (1 - Tdap) [facility] Comment on above: Postponed from 1984 (Declined at t his time) Start: 10-09-2025 Covid-19 Vaccine ( season) Covid-19 Vaccine () [facility] Comment on above: Postponed from 05/26/2024 (Declined at t his time) Start: 05-26-2025 Influenza vaccination [facility] Start: 05-22-2025 End: 08-21-2025 Hepatic function 2000 panel - Serum or Plasma HEPATIC FUNCTION PNL Lab Routine Hyperlipidemia, unspecified hyperlipidemia type Expected: 05/22/2025, Expires: 08/21/2025 [facility] Comment on above: Expected: 05/22/2025, Expires: Start: 05-22-2025 End: 08-21-2025 Lipid 1996 panel - Serum or Plasma LIPID PANEL, FASTING Lab Routine Hyperlipidemia, unspecified hyperlipidemia type Expected: 05/22/2025, Expires: 08/21/2025 [facility] Work Phone: Comment on above: Expected: 05/22/2025, Expires: Start: 03-24-2025 Influenza [facility] Comment on above: Postponed from 05/26/2024 (Declined at t his time) Start: 03-01-2025 End: 03-01-2025 Patient encounter procedure 03/01/2025 9:15 AM EDT Appointment Radiology [address] [place] [address] US ABD RUQ Radiology Comment on above: US ABD RUQ Start: 02-26-2025 End: 05-28-2025 Lipid 1996 panel - Serum or Plasma LIPID PANEL BASIC Lab Routine Hyperlipidemia, unspecified hyperlipidemia type Expected: 02/26/2025, Expires: 05/28/2025 [facility] Comment on above: Expected: 02/26/2025, Expires: Start: 11-26-2024 End: 11-26-2024 Patient encounter procedure 11/26/2024 5:40 PM EST Office Visit Internal Medicine [id number] [place] [address] [place] [address] [place] [address] [phone] (Work) physical - [facility] Comment on above: physical - [facility] Start: 09-09-2024 End: 12-09-2024 25-hydroxyvitamin D3 [Mass/volume] in Serum or Plasma VITAMIN D 25 HYDROXY Lab Routine Vitamin D deficiency Expected: 09/09/2024, Expires: 12/09/2024 [facility] Comment on above: Expected: 09/09/2024, Expires: Start: 09-09-2024 End: 09-09-2025 CBC W Auto Differential panel - Blood COMPLETE BLOOD COUNT AND DIFFERENTIAL Lab Routine Elevated cholesterol Expected: 09/09/2024, Expires: 09/09/2025 [facility] Comment on above: Expected: 09/09/2024, Expires: Start: 09-09-2024 End: 09-09-2025 Comprehensive metabolic 2000 panel - Serum or Plasma COMPREHENSIVE METABOLIC PANEL Lab Routine Elevated cholesterol Expected: 09/09/2024, Expires: 09/09/2025 [facility] Comment on above: Expected: 09/09/2024, Expires: Start: 09-09-2024 End: 12-09-2024 Hepatitis C virus Ab [Presence] in Serum HEPATITIS C ANTIBODY IA WITH CONFIRMATION Lab Routine Special screening examination for viral disease Expected: 09/09/2024, Expires: 12/09/2024 [facility] Comment on above: Expected: 09/09/2024, Expires: Start: 09-09-2024 End: 12-09-2024 HIV 1+2 Ab [Presence] in Serum or Plasma by Immunoassay HIV 1/2 COMBO WITH REFLEX TO DIFFERENTIATION Lab Routine Screening for HIV (human immunodeficiency virus) Expected: 09/09/2024, Expires: 12/09/2024 [facility] Comment on above: Expected: 09/09/2024, Expires: Start: 09-09-2024 End: 09-09-2025 Lipid 1996 panel - Serum or Plasma LIPID PANEL BASIC Lab Routine Elevated cholesterol Expected: 09/09/2024, Expires: 09/09/2025 [facility] Work Phone: Comment on above: Expected: 09/09/2024, Expires: Start: 09-09-2024 End: 12-09-2024 PSA/PROSTATE SPECIFIC ANTIGEN SCREENING PSA/PROSTATE SPECIFIC ANTIGEN SCREENING Lab Routine Screening for prostate cancer Expected: 09/09/2024, Expires: 12/09/2024 [facility] Comment on above: Expected: 09/09/2024, Expires: Start: 05-26-2024 Covid-19 Vaccine () Covid-19 Vaccine () [facility] Start: 05-26-2024 Influenza vaccination Influenza Vaccine (#1) [facility] Start: 11-22-2023 End: 02-21-2024 25-hydroxyvitamin D3 [Mass/volume] in Serum or Plasma VITAMIN D 25 HYDROXY Lab Routine Vitamin D deficiency Expected: 11/22/2023, Expires: 02/21/2024 [facility] Work Phone: Comment on above: Expected: 11/22/2023, Expires: 4 Start: 11-22-2023 End: 02-21-2024 CBC W Auto Differential panel - Blood CBC + DIFF Lab Routine Elevated cholesterol Expected: 11/22/2023, Expires: 02/21/2024 [facility] Work Phone: Comment on above: Expected: 11/22/2023, Expires: 4 Start: 11-22-2023 End: 02-21-2024 Comprehensive metabolic 2000 panel - Serum or Plasma COMP METABOLIC PANEL Lab Routine Elevated cholesterol Expected: 11/22/2023, Expires: 02/21/2024 [facility] Work Phone: Comment on above: Expected: 11/22/2023, Expires: Start: 11-22-2023 End: 02-21-2024 Hepatitis C virus Ab [Presence] in Serum HEPATITIS C ANTIBODY IA WITH CONFIRMATION Lab Routine Special screening examination for viral disease Expected: 11/22/2023, Expires: 02/21/2024 [facility] Work Phone: Comment on above: Expected: 11/22/2023, Expires: Start: 11-22-2023 End: 02-21-2024 HIV 1+2 Ab [Presence] in Serum or Plasma by Immunoassay HIV 1 2 COMBO(AG/AB),WITH REFLEX TO DIFFERENTIATION Lab Routine Screening for HIV (human immunodeficiency virus) Expected: 11/22/2023, Expires: 02/21/2024 [facility] Work Phone: Comment on above: Expected: 11/22/2023, Expires: Start: 11-22-2023 End: 02-21-2024 Lipid 1996 panel - Serum or Plasma LIPID PANEL BASIC Lab Routine Elevated cholesterol Expected: 11/22/2023, Expires: 02/21/2024 [facility] Work Phone: Comment on above: Expected: 11/22/2023, Expires: Start: 11-22-2023 End: 02-21-2024 PSA/PROSTSPECAG SCRN PSA/PROSTSPECAG SCRN Lab Routine Screening for malignant neoplasm of prostate Expected: 11/22/2023, Expires: 02/21/2024 [facility] Work Phone: Comment on above: Expected: 11/22/2023, Expires: 4 Start: 11-22-2023 End: 02-21-2024 Thyrotropin [Units/volume] in Serum or Plasma TSH BLD Lab Routine Other fatigue Expected: 11/22/2023, Expires: 02/21/2024 [facility] Work Phone: Comment on above: Expected: 11/22/2023, Expires: Start: 11-22-2023 End: 02-21-2024 Thyroxine (T4) free [Mass/volume] in Serum or Plasma T4 FREE/FREE THYROX Lab Routine Other fatigue Expected: 11/22/2023, Expires: 02/21/2024 [facility] Work Phone: Comment on above: Expected: 11/22/2023, Expires: Start: 09-25-2023 Depression Assessment Depression Assessment [facility] Start: 05-26-2023 Influenza vaccination Influenza Vaccine (#1) [facility] Start: 2020 Prostate specific antigen measurement Prostate Cancer Screening Discussion [facility] Start: 2015 Pneumococcal Vaccine: 50+ (1 of 1 - PCV) Pneumococcal Vaccine: 50+ (1 of 1 - PCV) [facility] Start: 2015 Shingrix Vaccine (1 of 2) Shingrix Vaccine (1 of 2) [facility] Start: 2010 Diabetes Screening Diabetes Screening [facility] Start: 2010 Screening for malignant neoplasm of colon [facility] Start: 2000 Lipid panel Lipid Screening [facility] Start: 1984 Hepatitis B Vaccine (1 of 3 - 19+ 3-dose series) Hepatitis B Vaccine (1 of 3 - 19+ 3-dose series) [facility] Start: 1984 Urine microalbumin profile DTaP,Tdap,Td Vaccine (1 - Tdap) [facility] Start: 1983 Anxiety Screening Anxiety Screening [facility] Start: 1983 Depression Screening Depression Screening [facility] Start: 1983 Hepatitis C screening Hepatitis C Screening [facility] Start: 1983 HIV screening HIV Screening [facility] Start: 03-20-1966 Covid-19 Vaccine (#1) Covid-19 Vaccine (#1) [facility] Start: 1965 Hepatitis B Vaccine (1 of 3 - 3-dose series) Hepatitis B Vaccine (1 of 3 - 3-dose series) [facility] Acute hepatitis 2000 panel - Serum [facility] Aldolase [Enzymatic activity/volume] in Serum or Plasma [facility] C reactive protein [Mass/volume] in Serum or Plasma [facility] Celiac disease screen [facility] Creatine kinase [Enzymatic activity/volume] in Serum or Plasma [facility] Cytomegalovirus IgG antibody measurement [facility] Cytomegalovirus IgM antibody assay [facility] End: 11-26-2025 Echocardiography ECHO Cardiology Routine Heart murmur 1 Occurrences starting 11/26/2024 until 11/26/2025 [facility] Comment on above: 1 Occurrences starting 11/26/2024 until 11/26/2025 Elastase.pancreatic [Presence] in Stool [facility] Aurora Webb virus c apsid IgG and IgM panel - Serum [facility] Erythrocyte sediment ation rate [facility] Ferritin [Mass/volum e] in Serum or Plasma [facility] Helicobacter pylori Ag [Presence] in Stool by Immunoassay [facility] Hemoglobin A1c/Hemoglobin.total in Blood [facility] End: 11-21-2024 HOME SLEEP APNEA TEST (HSAT) HOME SLEEP APNEA TEST (HSAT) Procedures Routine Snoring 1 Occurrences starting 11/22/2023 until 11/21/2024 [facility] Work Phone: Comment on above: 1 Occurrences starting 11/22/2023 until 11/21/2024 End: 10-09-2025 HOME SLEEP APNEA TEST (HSAT) HOME SLEEP APNEA TEST (HSAT) Procedures Routine Snoring 1 Occurrences starting 10/09/2024 until 10/09/2025 [facility] Work Phone: Comment on above: 1 Occurrences starting 10/09/2024 until 10/09/2025 Iron [Mass/mass] in Unspecified specimen [facility] Lactate dehydrogenas e measurement [facility] Serum immunofixation [facility] Testosterone measurement [facility] End: 12-26-2025 US Abdomen RUQ US ABD RIGHT UPPER QUADRANT Radiology Routine RUQ pain 1 Occurrences starting 11/26/2024 until 12/26/2025 [facility] Work Phone: Comment on above: 1 Occurrences starting 11/26/2024 until 12/26/2025 End: 12-21-2024 XR Knee - right 4 Views XR KNEE GENERAL 4V AP BOTH/PA BOTH/LAT/MERC RIGHT Radiology Routine Chronic pain of right knee 1 Occurrences starting 11/22/2023 until 12/21/2024 [facility] Work Phone: Comment on above: 1 Occurrences starting 11/22/2023 until 12/21/2024 End: 12-21-2024 XR Lumbar spine 3 Views XR LUMBAR GENERAL 3V AP/LAT/L5-S1 Radiology Routine Lumbar pain 1 Occurrences starting 11/22/2023 until 12/21/2024 [facility] Work Phone: Comment on above: 1 Occurrences starting 11/22/2023 until 12/21/2024 [facility] Payers Date Payer Category Payer Self-pay 2025 Unknown . 2023 Private Health Insurance [id number] 2023 Unknown [id number] Unknown [id number] Unknown [id number] Unknown [id number] Social History Date Type Detail Facility Start: 11-22-2023 End: 04-23-2025 Tobacco smoking status NHIS Ex-smoker [facility] Work Phone: Start: 09-25-1983 End: 07-19-2002 History of tobacco use Current smoker [facility] Work Phone: Start: 09-25-1983 End: 07-19-2002 History of tobacco use Cigarette Smoker [facility] Work Phone: Start: 11-22-2023 End: 10-09-2024 Cigarettes smoked current (pack per day) - Reported 1 [facility] Start: 11-22-2023 End: 10-09-2024 Tobacco use and exposure Smokeless tobacco non-user [facility] Work Phone: Start: 11-22-2023 End: 11-26-2024 Alcohol intake Ex-drinker (finding) [facility] Start: 11-22-2023 End: 10-09-2024 Tobacco use panel [facility] Adult Depression Screening Assessment 0 [facility] Start: 1965 Sex Assigned At Not on file [facility] Work Phone: Start: 1965 Sex Assigned At Male [facility] Clinical Notes 11-22-2023 to 04-23-2025 Note Date & Type Note Facility 04-23-2025 Evaluation note Diagnosis Onset Date Resolution Bloating acute April 23 3:19pm Hepatosplenomegaly acute March 272024 3:19pm [facility] Work Phone: 1(842) 248-728007-08-2025 Telephone encounter Note* Telephone Encounter - Tess Luna - 04/01/2025 11:41 AM EDT Message was given to the patient. Patient states that he is scheduled with a sleeve presser operator at the end of the month at [facility]. Tess Luna [facility]07-08-2025 Miscellaneous Notes* Telephone Encounter - Tess Luna - 04/01/2025 11:41 AM EDT Message was given to the patient. Patient states that he is scheduled with a sleeve presser operator at the end of the month at [facility]. Tess Luna * Telephone Encounter - Estephanie Pozo MA - 04/01/2025 10:38 AM EDT Left message for patient to contact office back Please deliver message to patient (ok for PSS to deliver message) and document Estephanie Pozo MA * Telephone Encounter - Arlette Hernandez MD - 04/01/2025 9:09 AM EDT Please call the patient with the results: US liver showed fatty liver. Please advise to keep low fat diet, abstain from alcohol if any and schedule with sleeve presser operator for further evaluation of the fatty liver. Order filed. * Telephone Encounter - Estephanie Pozo MA - 04/01/2025 8:51 AM EDT Received fax from [facility] [phone] Re: Ultrasound of abdomen completed on 03/29/2025 Results placed in provider mail folder for review Estephanie Pozo MA [facility] Telephone encounter Note * Telephone Encounter - Estephanie Pozo MA - 04/01/2025 10:38 AM EDT Left message for patient to contact office back Please deliver message to patient (ok for PSS to deliver message) and document Estephanie Pozo MA [facility]07-08-2025 Telephone encounter Note* Telephone Encounter - Arlette Hernandez MD - 04/01/2025 9:09 AM EDT Please call the patient with the results: US liver showed fatty liver. Please advise to keep low fat diet, abstain from alcohol if any and schedule with sleeve presser operator for further evaluation of the fatty liver. Order filed. [facility]07-08-2025 Telephone encounter Note* Telephone Encounter - Estephanie Pozo MA - 04/01/2025 8:51 AM EDT Received fax from [facility] [phone] Re: Ultrasound of abdomen completed on 03/29/2025 Results placed in provider mail folder for review Estephanie Pozo MA [facility]07-05-2025 Radiology Diagnostic study note [facility] Services [address] [place], [place] [address] Abdomen Limited MR#: [id number] Acct: [id number] Name: NIC GUPTA Rep #: [id number] : 1965 M 59 From: Awa Melgar MD PCP: ARLETTE HERNANDEZ Status: REG CLI Study:Abdomen Limited Date of Exam: 02/16 Exam# [id number] Ordering Dr: ARLETTE MCDONALD EXAM: US Abdomen Limited, Right Upper Quadrant CLINICAL INDICATION: ABD PAIN TECHNIQUE: Real-time ultrasound of the right upper quadrant with image documentation. COMPARISON: No relevant prior studies available. FINDINGS: LIVER: Liver measures up to 17.2 cm. Fatty infiltration of the liver. No intrahepatic bile duct dilation. GALLBLADDER: Negative Anderson's sign was reported by the poultry slaughterer. No gallstones. COMMON BILE DUCT: Unremarkable as visualized. No stones. No dilation. Commonbile duct measures 0.3 cm in diameter. PANCREAS: Pancreas not visualized secondary to bowel gas. RIGHT KIDNEY: Unremarkable. No stones. No hydronephrosis. The right kidney measures 12.6 x 5.1 x 4.7 cm. SPLEEN: Spleen measures of the 13.0 cm. US/Abdomen Limited IMPRESSION: 1. Fatty infiltration of the liver. 2. Splenomegaly. Reading Location: [facility] CC: ARLETTE HERNANDEZ ~ Dice Table Person: Signed [facility]05-28-2025 Telephone encounter Note* Telephone Encounter - Tess Luna - 02/19/2025 11:38 AM EDT Message was given to the patient. Patient declines medication for now and wants to focus on diet modifications. Tess Luna [facility]05-28-2025 Miscellaneous Notes* Telephone Encounter - Tess Luna - 02/19/2025 11:38 AM EDT Message was given to the patient. Patient declines medication for now and wants to focus on diet modifications. Tess Luna * Telephone Encounter - Paula Sandoval MA - 02/19/2025 10:09 AM EDT Left message for patient to contact office back Please deliver message to patient (ok for PSS to deliver message) and document * Telephone Encounter - Arlette Hernandez MD - 02/19/2025 8:58 AM EDT Please call the patient with the results: cholesterol is elevated, worse compared to August 2024 labs. Please advise to keep low fat diet, exercise routinely, advise if willing to try a low dose statin and recheck labs in 3 months. [facility] Telephone encounter Note * Telephone Encounter - Paula Sandoval MA - 02/19/2025 10:09 AM EDT Left message for patient to contact office back Please deliver message to patient (ok for PSS to deliver message) and document [facility]05-28-2025 Telephone encounter Note* Telephone Encounter - Arlette Hernandez MD - 02/19/2025 8:58 AM EDT Please call the patient with the results: cholesterol is elevated, worse compared to August 2024 labs. Please advise to keep low fat diet, exercise routinely, advise if willing to try a low dose statin and recheck labs in 3 months. [facility]03-04-2025 NoteHNO ID: [id number] Author: ARLETTE HERNANDEZ MD Service: ? Author Type: Physician Type: Progress Notes Filed: 11/26/2024 18:12 Note Text: Nic Gupta is a 59 year old male who presents for a comprehensive problem evaluation. New concerns today include: Feels well in general, reports no problems or concerns. He had seen ENT and the sinuses were fine, he got an air purifier and feels better. He sees chiropractor for neck adjustments. He had some stiffness neck and found some cervical spine degeneration, had xray done by chiropractor. He had blood work in August, cholesterol and glucose slightly elevated, he was eating more ice cream prior to the blood tests. He reports bloating RUQ chronic , he was told his gallbladder is not working well. He said he had coloscopy in 2018 in [place], no results available. Exercises regularly: Yes Testicular self exam: Yes PAST MEDICAL HISTORY Diagnosis Date Elevated cholesterol PAST SURGICAL HISTORY Procedure Laterality Date APPENDECTOMY 1974 COLONOSCOPY SCREENING 2018, [place], polyps Social History Tobacco Use Smoking status: Former Current packs/day: 0.00 Average packs/day: 1 pack/day for 18.8 years (18.8 ttl pk-yrs) Types: Cigarettes Start date: 09/25/1983 Quit date: 07/19/2002 Years since quittin.3 Smokeless tobacco: Never Substance Use Topics Alcohol use: Not Currently Drug use: Never Family Status Relation Name Status Mo Fa Sis Alive Bro Alive MGMo MGFa PGMo PGFa No partnership data on file REVIEW OF SYSTEMS: GENERAL: No weight loss, malaise or fevers HEENT: Negative for frequent or significant headaches, No changes in hearing or vision, no nose bleeds or other nasal problems NECK: Negative for lumps, goiter, pain and significant neck swelling RESPIRATORY: Negative for cough, hemoptysis, wheezing, COPD, dyspnea or shortness of breath CARDIOVASCULAR: Negative for chest pain, leg swelling, hypertension, CHF or palpitations GI: No nausea, vomiting, or diarrhea : No history of dysuria, frequency or incontinence MUSCULOSKELETAL: Negative for joint pain or swelling, back pain or muscle pain SKIN: Negative for lesions, rash, and itching PSYCH: negative for symptoms of depression and anxiety. HEMATOLOGY/LYMPHOLOGY Negative for prolonged bleeding, bruising easily or swollen nodes ENDOCRINE: Negative for cold or heat intolerance, polyuria, polydipsia and goiter NEURO: negative for migraine headaches PHYSICAL EXAMINATION: BP 127/72 (BP Site: Left Arm, BP Position: Sitting, BP Cuff Size: Regular Adult) Pulse 75 Temp 36.5 ?C (97.7 ?F) (Temporal) Ht 179.3 cm (5' 10.6) Wt 87.8 kg (193 lb 9 oz) SpO2 98% BMI 27.30 kg/m? Body mass index is 27.3 kg/m?. General appearance - Well appearing, alert, in no acute distress, well-hydrated, well nourished. HEENT: Normocephalic, no masses, lesions, tenderness or abnormalities- Anicteric sclera. Pupils are equally round and reactive to light. Extraocular movements are intact. - External ears normal, canals clear - Nares normal, septum midline, mucosa normal, no drainage or sinus tenderness - Lips, mucosa, and tongue normal, teeth and gums normal, oropharynx normal Neck - Supple, no adenopathy; thyroid symmetric, normal size, no bruits Back - Normal exam Lungs - Lungs clear to auscultation. No wheezing, rhonchi, rales. Heart - Positive findings: murmur: 3/6 early systolic blowing blowing murmur URSB and apex Abdomen - Normal abdominal exam, Abdomen soft, non-tender. Bowel sounds normal. No masses, organomegaly Extremities - No deformities, edema, skin discoloration, clubbing or cyanosis. Good capillary refill. Musculoskeletal - No joint swelling, deformity, or tenderness Peripheral pulses - Normal Neuro - Gait normal. Reflexes normal and symmetric. Sensation grossly intact. ASSESSMENT/PLAN: 1. Routine general medical examination at a health care facility - ICD9: V70.0, ICD10: Z00.00 (primary diagnosis) - Counseled on healthy diet and regular exercise 2. Screening for depression - ICD9: V79.0, ICD10: Z13.31 - DEPRESSION SCREENING 3. Encounter for screening examination for other mental health and behavioral disorders - ICD9: V79.8, ICD10: Z13.39 - ANXIETY SCREENING 4. RUQ pain - ICD9: 789.01, ICD10: R10.11 Differential Diagnosis includes Gall bladder colic/cholelithiasis - US ABD RIGHT UPPER QUADRANT 5. Heart murmur - ICD9: 785.2, ICD10: R01.1 - ECHO - PERFLUTREN LIPID MICROSPHERES 1.1 MG/ML INJECTION IN NS 10 ML - SODIUM CHLORIDE 0.9 % (FLUSH) INJECTION SYRINGE 6. Hyperlipidemia, unspecified hyperlipidemia type - ICD9: 272.4, ICD10: E78.5 - Uncontrolled - Counseled on healthy diet and regular exercise - LIPID PANEL BASIC Arlette Hernandez, [facility]03-04-2025 History of Present illness Narrative* Arlette Hernandez MD - 11/26/2024 5:50 PM EST Nic Gupta is a 59 year old male who presents for a comprehensive problem evaluation. New concerns today include: Feels well in general, reports no problems or concerns. He had seen ENT and the sinuses were fine, he got an air purifier and feels better. He sees chiropractor for neck adjustments. He had some stiffness neck and found some cervical spine degeneration, had xray done by chiropractor. He had blood work in August, cholesterol and glucose slightly elevated, he was eating more ice cream prior to the blood tests. He reports bloating RUQ chronic , he was told his gallbladder is not working well. He said he had coloscopy in 2018 in [place], no results available. Exercises regularly: Yes Testicular self exam: Yes PAST MEDICAL HISTORY Diagnosis Date Elevated cholesterol PAST SURGICAL HISTORY Procedure Laterality Date APPENDECTOMY 1975 COLONOSCOPY SCREENING 2018, [place], polyps Social History Tobacco Use Smoking status: Former Current packs/day: 0.00 Average packs/day: 1 pack/day for 18.8 years (18.8 ttl pk-yrs) Types: Cigarettes Start date: 09/25/1983 Quit date: 07/19/2002 Years since quittin.3 Smokeless tobacco: Never Substance Use Topics Alcohol use: Not Currently Drug use: Never Family Status Relation Name Status Mo Fa Sis Alive Bro Alive MGMo MGFa PGMo PGFa No partnership data on file REVIEW OF SYSTEMS: GENERAL: No weight loss, malaise or fevers HEENT: Negative for frequent or significant headaches, No changes in hearing or vision, no nose bleeds or other nasal problems NECK: Negative for lumps, goiter, pain and significant neck swelling RESPIRATORY: Negative for cough, hemoptysis, wheezing, COPD, dyspnea or shortness of breath CARDIOVASCULAR: Negative for chest pain, leg swelling, hypertension, CHF or palpitations GI: No nausea, vomiting, or diarrhea : No history of dysuria, frequency or incontinence MUSCULOSKELETAL: Negative for joint pain or swelling, back pain or muscle pain SKIN: Negative for lesions, rash, and itching PSYCH: negative for symptoms of depression and anxiety. HEMATOLOGY/LYMPHOLOGY Negative for prolonged bleeding, bruising easily or swollen nodes ENDOCRINE: Negative for cold or heat intolerance, polyuria, polydipsia and goiter NEURO: negative for migraine headaches PHYSICAL EXAMINATION: BP 127/72 (BP Site: Left Arm, BP Position: Sitting, BP Cuff Size: Regular Adult) Pulse 75 Temp 36.5 C (97.7 F) (Temporal) Ht 179.3 cm (5' 10.6) Wt 87.8 kg (193 lb 9 oz) SpO2 98% BMI 27.30 kg/m Body mass index is 27.3 kg/m . General appearance - Well appearing, alert, in no acute distress, well-hydrated, well nourished. HEENT: Normocephalic, no masses, lesions, tenderness or abnormalities- Anicteric sclera. Pupils areequally round and reactive to light. Extraocular movements are intact. - External ears normal, canals clear - Nares normal, septum midline, mucosa normal, no drainage or sinus tenderness - Lips, mucosa, and tongue normal, teeth and gums normal, oropharynx normal Neck - Supple, no adenopathy; thyroid symmetric, normal size, no bruits Back - Normal exam Lungs - Lungs clear to auscultation. No wheezing, rhonchi, rales. Heart - Positive findings: murmur: 3/6 early systolic blowing blowing murmur URSB and apex Abdomen - Normal abdominal exam, Abdomen soft, non-tender. Bowel sounds normal. No masses, organomegaly Extremities - No deformities, edema, skin discoloration, clubbing or cyanosis. Good capillary refill. Musculoskeletal - No joint swelling, deformity, or tenderness Peripheral pulses - Normal Neuro - Gait normal. Reflexes normal and symmetric. Sensation grossly intact. ASSESSMENT/PLAN: 1. Routine general medical examination at a health care facility - ICD9: V70.0, ICD10: Z00.00 (primary diagnosis) - Counseled on healthy diet and regular exercise 2. Screening for depression - ICD9: V79.0, ICD10: Z13.31 - DEPRESSION SCREENING 3. Encounter for screening examination for other mental health and behavioral disorders - ICD9: V79.8, ICD10: Z13.39 - ANXIETY SCREENING 4. RUQ pain - ICD9: 789.01, ICD10: R10.11 Differential Diagnosis includes Gall bladder colic/cholelithiasis - US ABD RIGHT UPPER QUADRANT 5. Heart murmur - ICD9: 785.2, ICD10: R01.1 - ECHO - PERFLUTREN LIPID MICROSPHERES 1.1 MG/ML INJECTION IN NS 10 ML - SODIUM CHLORIDE 0.9 % (FLUSH) INJECTION SYRINGE 6. Hyperlipidemia, unspecified hyperlipidemia type - ICD9: 272.4, ICD10: E78.5 - Uncontrolled - Counseled on healthy diet and regular exercise - LIPID PANEL BASIC Arlette Hernandez MD documented in [facility] encounter[facility]02-[facility]25 NoteHNO ID: [id number] Author: HOLLY SOLORZANO PA-C Service: ? Author Type: Physician Chili Maker Type: Procedures Filed: 11/13/2024 15:10 Note Text: PROCEDURE NOTE Procedure: Nasal endoscopy Description: Topical lidocaine 4% anesthetic and phenylephrine 0.5% decongestant were applied through the nares bilaterally. The 30 degree rigid nasal endoscope was used bilaterally. Septum was deviated bilaterally worse left vs right. There was no pus, polyp or mass in the nose. There was no inferior turbinate hypertrophy. The nasopharynx and eustachian tube orifices were patent, without masses or lesions. There was a good response of the inferior turbinates to topical vasoconstriction. The findings were reviewed with the patient.[facility]02-19-2025 Procedure note* Holly Solorzano PA-C - 11/13/2024 3:08 PM EST PROCEDURE NOTE Procedure: Nasal endoscopy Description: Topical lidocaine 4% anesthetic and phenylephrine 0.5% decongestant were applied through the nares bilaterally. The 30 degree rigid nasal endoscope was used bilaterally. Septum was deviated bilaterally worse left vs right. There was no pus, polyp or mass in the nose. There was no inferior turbinate hypertrophy. The nasopharynx and eustachian tube orifices were patent, without masses or lesions. There was a good response of the inferior turbinates to topical vasoconstriction. The findings were reviewed with the patient. [facility]02-19-[facility] Procedure note* Holly Solorzano PA-C - 11/13/2024 3:08 PM EST PROCEDURE NOTE Procedure: Nasal endoscopy Description: Topical lidocaine 4% anesthetic and phenylephrine 0.5% decongestant were applied through the nares bilaterally. The 30 degree rigid nasal endoscope was used bilaterally. Septum was deviated bilaterally worse left vs right. There was no pus, polyp or mass in the nose. There was no inferior turbinate hypertrophy. The nasopharynx and eustachian tube orifices were patent, without masses or lesions. There was a good response of the inferior turbinates to topical vasoconstriction. The findings were reviewed with the patient. documented in this encounterMer[facility]02-19-2025 NoteHNO ID: [id number] Author: HOLLY SOLORZANO PA-C Service: ? Author Type: Physician Chili Maker Type: Progress Notes Filed: 11/13/2024 15:10 Note Text: HPI: Nic Gupta is a 59 year old male who presents to the office for nasal complaints. Presents c/o constant pressure and pain around his eyes, behind his eyes and radiating into the back of his skull, for three months. No exacerbating or remitting factors. Had last sinus infection 5 years ago. Has mild obstructed breathing primarily at night, with some morning mucus. Denies recurrent sinus infections, chronic runny nose or post-nasal drip, changes in sense of taste or smell, nosebleeds. Has hx of nasal fracture. Denies hx of asthma, allergies, smoking. Denies known allergy to lidocaine/novocaine. Denies hx of nasal/sinus surgery Has used ibuprofen, tylenol with minimal relief. Has seen ophthalmology with no abnormal findings. Had remote hx of what sounds like eustachian tube irrigation and had issues with the procedure on the right. I reviewed the allergies, medications, problem list, PMH/PSH, FmHx and SocHx as documented per EMR. Physical Exam BP 125/76 Pulse 80 Resp 18 Ht 180.1 cm (5' 10.9) Wt 88.9 kg (196 lb) BMI 27.41 kg/m? General: Appears to be in no acute distress, normal affect Head/Face: Facial muscles appear to be functioning normally. Temporomandibular joints move freely, without popping or clicking, are nontender. Neck: There are no palpable salivary gland masses, no thryoid mass or thyromegaly, no neck masses or lymphadenopathy. Eyes: Extraocular movements appear intact. Ears: Right Ear: External ear is without lesions. EAC is without inflammatory changes, free of debris. Visualized TM is not inflamed and with normal landmarks, not retracted or bulging. TM is mobile on pneumatic otoscopy. Left Ear: External ear is without lesions. EAC is without inflammatory changes, free of debris. Visualized TM is not inflamed and with normal landmarks, not retracted or bulging. TM is mobile on pneumatic otoscopy. Nose: External nose is without lesions or deformity. Nasal mucosa appears healthy and without obvious lesions or masses on nasal speculum exam. No purulence. The septum is nonobstructive. The inferior turbinates are not hypertrophic. Oral Cavity/Oropharynx: The lips are without lesions. The tongue and floor of the mouth are without lesions. The soft palate and posterior pharynx are without lesions. Gingival mucosa is without lesions. Tonsils are not enlarged and without lesions. Assessment AND Plan I counseled the patient about the differential diagnosis, natural course, treatment options and answered their questions regarding the Diagnoses and all orders for this visit: Headache around the eyes Facial pressure Eye pressure Pt c/o headache, eye pressure w/o any significant nasal complaints. On rhinoscopy there is bilateral septal deviation w/o mucus/purulence, polyp or mass. No imaging available for review. Patient advised to followup with PCP or neuro regarding chronic headaches as symptoms not consistent with chronic sinusitis, no ENT indications for imaging today. Advised to trial naproxen for headaches. Followup Return if symptoms worsen or fail to improve. Holly Solorzano PA-C Time: 35 minutes: Time includes preparation, obtaining/reviewing history, exam, interpreting results, ordering, counseling/education, referring/communicating and documentation. -Created using voice recognition software, some errors may have occurred. Corrections may be performed at a later date PROCEDURE NOTE Procedure: Nasal endoscopy Description: Topical lidocaine 4% anesthetic and phenylephrine 0.5% decongestant were applied through the nares bilaterally. The 30 degree rigid nasal endoscope was used bilaterally. Septum was deviated bilaterally worse left vs right. There was no pus, polyp or mass in the nose. There was no inferior turbinate hypertrophy. The nasopharynx and eustachian tube orifices were patent, without masses or lesions. There was a good response of the inferior turbinates to topical vasoconstriction. The findings were reviewed with the patient.[facility]02-19-2025 History of Present illness Narrative* Holly Solorzano PA-C - 11/13/2024 2:47 PM EST HPI: Nic Gupta is a 59 year old male who presents to the office for nasal complaints. Presents c/o constant pressure and pain around his eyes, behind his eyes and radiating into the back of his skull, for three months. No exacerbating or remitting factors. Had last sinus infection 5 years ago. Has mild obstructed breathing primarily at night, with some morning mucus. Denies recurrent sinus infections, chronic runny nose or post-nasal drip, changes in sense of taste or smell, nosebleeds. Has hx of nasal fracture. Denies hx of asthma, allergies, smoking. Denies known allergy to lidocaine/novocaine. Denies hx of nasal/sinus surgery Has used ibuprofen, tylenol with minimal relief. Has seen ophthalmology with no abnormal findings. Had remote hx of what sounds like eustachian tube irrigation and had issues with the procedure on the right. I reviewed the allergies, medications, problem list, PMH/PSH, FmHx and SocHx as documented per EMR. Physical Exam BP 125/76 Pulse 80 Resp 18 Ht 180.1 cm (5' 10.9) Wt 88.9 kg (196 lb) BMI 27.41 kg/m General: Appears to be in no acute distress, normal affect Head/Face: Facial muscles appear to be functioning normally. Temporomandibular joints move freely, without popping or clicking, are nontender. Neck: There are no palpable salivary gland masses, no thryoid mass or thyromegaly, no neck masses or lymphadenopathy. Eyes: Extraocular movements appear intact. Ears: Right Ear: External ear is without lesions. EAC is without inflammatory changes, free of debris. Visualized TM is not inflamed and with normal landmarks, not retracted or bulging. TM is mobile on pneumatic otoscopy. Left Ear: External ear is without lesions. EAC is without inflammatory changes, free of debris. Visualized TM is not inflamed and with normal landmarks, not retracted or bulging. TM is mobile on pneumatic otoscopy. Nose: External nose is without lesions or deformity. Nasal mucosa appears healthy and without obvious lesions or masses on nasal speculum exam. No purulence. The septum is nonobstructive. The inferior turbinates are not hypertrophic. Oral Cavity/Oropharynx: The lips are without lesions. The tongue and floor of the mouth are withoutlesions. The soft palate and posterior pharynx are without lesions. Gingival mucosa is without lesions. Tonsils are not enlarged and without lesions. Assessment & Plan I counseled the patient about the differential diagnosis, natural course, treatment options and answered their questions regarding the Diagnoses and all orders for this visit: Headache around the eyes Facial pressure Eye pressure Pt c/o headache, eye pressure w/o any significant nasal complaints. On rhinoscopy there is bilateral septal deviation w/o mucus/purulence, polyp or mass. No imaging available for review. Patient advised to followup with PCP or neuro regarding chronic headaches as symptoms not consistent with chronic sinusitis, no ENT indications for imaging today. Advised to trial naproxen for headaches. Followup Return if symptoms worsen or fail to improve. Holly Solorzano PA-C Time: 35 minutes: Time includes preparation, obtaining/reviewing history, exam, interpreting results, ordering, counseling/education, referring/communicating and documentation. -Created using voice recognition software, some errors may have occurred. Corrections may be performed at a later date PROCEDURE NOTE Procedure: Nasal endoscopy Description: Topical lidocaine 4% anesthetic and phenylephrine 0.5% decongestant were applied through the nares bilaterally. The 30 degree rigid nasal endoscope was used bilaterally. Septum was deviated bilaterally worse left vs right. There was no pus, polyp or mass in the nose. There was no inferior turbinate hypertrophy. The nasopharynx and eustachian tube orifices were patent, without masses or lesions. There was a good response of the inferior turbinates to topical vasoconstriction. The findings were reviewed with the patient. documented in [facility] NoteHNO ID: [id number] Author: ARLETTE HERNANDEZ MD Service: ? Author Type: Physician Type: Progress Notes Filed: 10/09/2024 09:15 Note Text: SUBJECTIVE Nic Gupta is a 59 year old male Patient presents with: Follow Up Nic Gupta is here for results review. He chooses diet, exercise, declines medications C/o pain eye muscles, they feel tight , radiated to the back of the skull, feels like a pressure, for a long time, at least 1 year, starts at the beginning of the day. Feels sinus pressure, denies runny nose, but snores at night and feels his mouth is dry. Denies vision changes, he had eye exam in May 2024. Had seen a slot host recently for a rash,a dvised to use a cream and follow up to see if he needs to see an principal technical specialist. CURRENT MEDICATIONS: No current outpatient medications on file. No current facility-administered medications for this visit. Past medical history was reviewed and updated. Past surgical history was reviewed and updated. Family History: was reviewed and updated. Past social history was reviewed and updated. Patient's Family History and Social History have been reviewed with the patient, and updated as appropriate. Please see relevant section in the [employer] EHR for details. Health Maintenance was reviewed with the patient and updated as appropriate. Please see relevant section in the [employer] EHR for details. REVIEW OF SYSTEMS: GENERAL: Fatigue HEENT: Negative for frequent or significant headaches, No changes in hearing or vision, no nose bleeds or other nasal problems RESPIRATORY: Negative for cough, hemoptysis, wheezing, COPD, dyspnea or shortness of breath CARDIOVASCULAR: Negative for chest pain, leg swelling, hypertension, CHF or palpitations GI: No nausea, vomiting, or diarrhea : No history of dysuria, frequency or incontinence MUSCULOSKELETAL: Negative for joint pain or swelling, back pain or muscle pain PSYCH: negative for symptoms of depression and anxiety. HEMATOLOGY/LYMPHOLOGY Negative for prolonged bleeding, bruising easily or swollen nodes ENDOCRINE: Negative for cold or heat intolerance, polyuria, polydipsia and goiter NEURO: negative for migraine headaches PHYSICAL EXAMINATION: BP 115/77 (BP Site: Left Arm, BP Position: Sitting, BP Cuff Size: Regular Adult) Pulse 74 Temp 36.4 ?C (97.6 ?F) (Temporal) Wt 89 kg (196 lb 3.4 oz) BMI 27.44 kg/m? General Appearance: well appearing, in no acute distress, alert, no palor, no jaundice, no lymphedenopathy Ears: External ears normal, canals clear Nose/Sinuses: Nares normal, septum midline, mucosa normal, no drainage or sinus tenderness Oropharynx: Lips, mucosa, and tongue normal, teeth and gums normal, oropharynx normal Lungs: Lungs clear to auscultation. No wheezing, rhonchi, rales. Heart: RRR without murmur, gallop, or rubs. No ectopy Abdomen: Normal abdominal exam, Abdomen soft, non-tender. Bowel sounds normal. No masses, organomegaly Extremities: Normal exam of the extremities. No clubbing, cyanosis, or edema. Musculoskeletal: No joint swelling, deformity, or tenderness. Peripheral Pulses: Normal Neurologic: Gait normal. cranial nerves and limbs exam is grossly intact. ASSESSMENT/PLAN: 1. Hyperlipidemia, unspecified hyperlipidemia type - ICD9: 272.4, ICD10: E78.5 (primary diagnosis) - Uncontrolled - Control undetermined, due for labs - Counseled on healthy diet and regular exercise - Discussed need for and benefit of weight loss. BMI 27.44 kg/(m2) 2. Screen for colon cancer - ICD9: V76.51, ICD10: Z12.11 - CONSULT TO GASTROENTEROLOGY 3. Snoring - ICD9: 786.09, ICD10: R06.83 - HOME SLEEP APNEA TEST (HSAT) 4. Sinus pressure - ICD9: 478.19, ICD10: J34.89 - Supportive care with plenty of fluids, rest, and analgesia prn. - CONSULT TO ENT Medical Decision Making: Problems: Moderate: 1+ chronic illnesses with change Risk: Moderate: Moderate risk from testing/treatment and Drug management Medical Decision Making Level: 4 - Moderate Arlette Hernandez [facility]01-15-[facility]25 History of Present illness Narrative* Arlette Hernandez MD - 10/09/2024 8:52 AM EST SUBJECTIVE Nic Gupta is a 59 year old male Patient presents with: Follow Up Nic Gupta is here for results review. He chooses diet, exercise, declines medications C/o pain eye muscles, they feel tight , radiated to the back of the skull, feels like a pressure, for a long time, at least 1 year, starts at the beginning of the day. Feels sinus pressure, denies runny nose, but snores at night and feels his mouth is dry. Denies vision changes, he had eye exam in May 2024. Had seen a slot host recently for a rash,a dvised to use a cream and follow up to see if he needs to see an principal technical specialist. CURRENT MEDICATIONS: No current outpatient medications on file. No current facility-administered medications for this visit. Past medical history was reviewed and updated. Past surgical history was reviewed and updated. Family History: was reviewed and updated. Past social history was reviewed and updated. Patient's Family History and Social History have been reviewed with the patient, and updated as appropriate. Please see relevant section in the [employer] EHR for details. Health Maintenance was reviewed with the patient and updated as appropriate. Please see relevant section in the [employer] EHR for details. REVIEW OF SYSTEMS: GENERAL: Fatigue HEENT: Negative for frequent or significant headaches, No changes in hearing or vision, no nose bleeds or other nasal problems RESPIRATORY: Negative for cough, hemoptysis, wheezing, COPD, dyspnea or shortness of breath CARDIOVASCULAR: Negative for chest pain, leg swelling, hypertension, CHF or palpitations GI: No nausea, vomiting, or diarrhea : No history of dysuria, frequency or incontinence MUSCULOSKELETAL: Negative for joint pain or swelling, back pain or muscle pain PSYCH: negative for symptoms of depression and anxiety. HEMATOLOGY/LYMPHOLOGY Negative for prolonged bleeding, bruising easily or swollen nodes ENDOCRINE: Negative for cold or heat intolerance, polyuria, polydipsia and goiter NEURO: negative for migraine headaches PHYSICAL EXAMINATION: BP 115/77 (BP Site: Left Arm, BP Position: Sitting, BP Cuff Size: Regular Adult) Pulse 74 Temp 36.4 C (97.6 F) (Temporal) Wt 89 kg (196 lb 3.4 oz) BMI 27.44 kg/m General Appearance: well appearing, in no acute distress, alert, no palor, no jaundice, no lymphedenopathy Ears: External ears normal, canals clear Nose/Sinuses: Nares normal, septum midline, mucosa normal, no drainage or sinus tenderness Oropharynx: Lips, mucosa, and tongue normal, teeth and gums normal, oropharynx normal Lungs: Lungs clear to auscultation. No wheezing, rhonchi, rales. Heart: RRR without murmur, gallop, or rubs. No ectopy Abdomen: Normal abdominal exam, Abdomen soft, non-tender. Bowel sounds normal. No masses, organomegaly Extremities: Normal exam of the extremities. No clubbing, cyanosis, or edema. Musculoskeletal: No joint swelling, deformity, or tenderness. Peripheral Pulses: Normal Neurologic: Gait normal. cranial nerves and limbs exam is grossly intact. ASSESSMENT/PLAN: 1. Hyperlipidemia, unspecified hyperlipidemia type - ICD9: 272.4, ICD10: E78.5 (primary diagnosis) - Uncontrolled - Control undetermined, due for labs - Counseled on healthy diet and regular exercise - Discussed need for and benefit of weight loss. BMI 27.44 kg/(m^2) 2. Screen for colon cancer - ICD9: V76.51, ICD10: Z12.11 - CONSULT TO GASTROENTEROLOGY 3. Snoring - ICD9: 786.09, ICD10: R06.83 - HOME SLEEP APNEA TEST (HSAT) 4. Sinus pressure - ICD9: 478.19, ICD10: J34.89 - Supportive care with plenty of fluids, rest, and analgesia prn. - CONSULT TO ENT Medical Decision Making: Problems: Moderate: 1+ chronic illnesses with change Risk: Moderate: Moderate risk from testing/treatment and Drug management Medical Decision Making Level: 4 - Moderate Arlette Hernandez MD [facility] Telephone encounter Note * Telephone Encounter - Arlette Hernandez MD - 09/13/2024 8:56 AM EST Noted. [facility] Miscellaneous Notes* Telephone Encounter - Arlette Hernandez MD - 09/13/2024 8:56 AM EST Noted. * Telephone Encounter - Mariely Crooks MA - 09/13/2024 8:47 AM EST Patient is aware of message and would like to watch his diet and exercise before starting a medication. Patient will discuss at office visit with Dr. Hernandez in November 2024. Mariely Crooks MA * Telephone Encounter - Nael William PA-C - 09/13/2024 7:50 AM EST A1c normal Please give below message * Telephone Encounter - Mariely Crooks MA - 09/12/2024 9:23 AM EST A1C can be added to labs done 09-11-2024. Will call patient when A1C is resulted. Mariely Crooks MA * Telephone Encounter - Nael William PA-C - 09/12/2024 7:21 AM EST Can lab add A1c? Cholesterol elevated Recommend low cholesterol diet, exercise Can also recommend Cholesterol medication documented in [facility]12-[facility]24 Telephone encounter Note * Telephone Encounter - Mariely Crooks MA - 09/13/2024 8:47 AM EST Patient is aware of message and would like to watch his diet and exercise before starting a medication. Patient will discuss at office visit with Dr. Hernandez in November 2024. Mariely Crooks MA [facility] Telephone encounter Note* Telephone Encounter - Nael William PA-C - 09/13/2024 7:50 AM EST A1c normal Please give below message [facility]12-[facility] Telephone encounter Note* Telephone Encounter - Mariely Crooks MA - 09/12/2024 9:23 AM EST A1C can be added to labs done 09-11-2024. Will call patient when A1C is resulted. Mariely Crooks MA [facility]12-19-20[facility] Telephone encounter Note* Telephone Encounter - Nael William PA-C - 09/12/2024 7:21 AM EST Can lab add A1c? Cholesterol elevated Recommend low cholesterol diet, exercise Can also recommend Cholesterol medication [facility] Telephone encounter Note* Telephone Encounter - Lin Garcia - 09/10/2024 11:59 AM EST Patient aware [facility]-17-[facility] Miscellaneous Notes* Telephone Encounter - Lin Garcia - 09/10/2024 11:59 AM EST Patient aware * Telephone Encounter - Wagner Jordan MA - 09/10/2024 11:45 AM EST Left message asking patient to return call regarding below. Please Deliver message Labs were filed and they are fasting * Telephone Encounter - Nael William PA-C - 09/09/2024 3:50 PM EST Filed * Telephone Encounter - Mary Fletcher - 09/09/2024 3:14 PM EST Nic is calling Arlette Hernandez MD today to request Lab Orders / patient orders . Patient has been identified by name and birthdate. Duration of symptoms: N/A Person calling: self Call patient at: at home [phone] (home) [phone] (cell) Was an appointment scheduled: No Closing statement: Results or non-symptom based questions: [facility], your call will be returned within the next business day. Mary White documented in this encounterMer[facility]12-17-2024 Telephone encounter Note * Telephone Encounter - Wagner Jordan MA - 09/10/2024 11:45 AM EST Left message asking patient to return call regarding below. Please Deliver message Labs were filed and they are fasting [facility]12-16-[facility] Telephone encounter Note* Telephone Encounter - Nael William PA-C - 09/09/2024 3:50 PM EST Filed [facility] Telephone encounter Note* Telephone Encounter - Mary Fletcher - 09/09/2024 3:14 PM EST Nic is calling Arlette Hernandez MD today to request Lab Orders / patient orders . Patient has been identified by name and birthdate. Duration of symptoms: N/A Person calling: self Call patient at: at home [phone] (home) [phone] (cell) Was an appointment scheduled: No Closing statement: Results or non-symptom based questions: Thank you for calling [facility], your call will be returned within the next business day. Mary White [facility]02-28-[facility] History of Present illness Narrative* Arlette Hernandez MD - 11/22/2023 5:22 PM EST SUBJECTIVE: Nic Gupta is a 58 year old male Patient presents with: Establish Care: Bilateral lower legs and low back pain [employer] to establish care: he moved from [place]. He c/o feeling tired, he wakes up tired, he wakes up with a pressure behind the eyes, brain fog, pressure in the back of the head. He sometimes cannot focus his eyes, has some dizziness. He snores at night. Symptoms started 6 months go when he changed work. He feels the glasses are not good anymore. He will bring records from [facility]. He was told he has some gallbladder issues, sometimes he feels nausea. Has some left low back pain, some numbness left thigh, went to chiropractor. Right knee is painful for long time, he is up on his feet all day. CURRENT MEDICATIONS: No current outpatient medications on file. No current facility-administered medications for this visit. PROBLEM LIST: There is no problem list on file for this patient. ALLERGIES: Patient has no allergy information on record. Social History Tobacco Use Smoking status: Former Types: Cigarettes Smokeless tobacco: Never No past medical history on file. No past surgical history on file. No family history on file. REVIEW OF SYSTEMS:PAIN ASSESSMENT: Negative for pain, history of chronic pain, or current treatmentfor a chronic pain condition. GENERAL: No weight loss, malaise or fevers HEENT: Negative for frequent or significant headaches, SEE HPI NECK: Negative for lumps, goiter, pain and significant neck swelling RESPIRATORY: Negative for cough, hemoptysis, wheezing, COPD, dyspnea or shortness of breath CARDIOVASCULAR: Negative for chest pain, leg swelling, hypertension, CHF or palpitations GI: No nausea, vomiting, or diarrhea : No history of dysuria, frequency or incontinence MUSCULOSKELETAL: Negative for joint pain or swelling, back pain or muscle pain SKIN: Negative for lesions, rash, and itching PSYCH: Negative for sleep disturbance, mood disorder and recent psychosocial stressors HEMATOLOGY/LYMPHOLOGY: Negative for prolonged bleeding, bruising easily or swollen nodes ENDOCRINE: Negative for cold or heat intolerance, polyuria, polydipsia and goiter NEURO: No history of headaches, syncope, paralysis, seizures or tremors PHYSICAL EXAMINATION: BP 117/74 (BP Site: Left Arm, BP Position: Sitting, BP Cuff Size: Regular Adult) Pulse 80 Temp 36.6 C (97.9 F) (Temporal) Ht 180.1 cm (5' 10.9) Wt 87 kg (191 lb 12.8 oz) SpO2 96% BMI 26.83 kg/m General Appearance: Well appearing, alert, in no acute distress, well-hydrated, well nourished.. Ears: External ears normal, canals clear. Nose/Sinuses: Nares normal, septum midline, mucosa normal, no drainage or sinus tenderness. Oropharynx: Lips, mucosa, and tongue normal, teeth and gums normal, oropharynx normal. Back:no pain to palpation of vertebrae, good flexion and extension, good range of motion, no muscletenderness, reflexes are 2+ and symmetric, motor and sensory appear to be normal, negative SLR test, no evidence of scoliosis Lungs: Lungs clear to auscultation. No wheezing, rhonchi, rales.. Heart: RRR without murmur, gallop, or rubs. No ectopy. Abdomen: Normal abdominal exam, Abdomen soft, non-tender. Bowel sounds normal. No masses, organomegaly. Extremities: No deformities, edema, skin discoloration, clubbing or cyanosis. Good capillary refill. . Musculoskeletal: No joint swelling, deformity, or tenderness. Peripheral Pulses: Normal. Neurologic: Gait normal. Reflexes normal and symmetric. Sensation grossly intact.. ASSESSMENT/PLAN: 1. Encounter to establish care - ICD9: V65.8, ICD10: Z76.89 (primary diagnosis) 2. Vision changes - ICD9: 368.9, ICD10: H53.9 - CONSULT TO OPHTHALMOLOGY 3. Other fatigue - ICD9: 780.79, ICD10: R53.83 - TSH BLD - T4 FREE/FREE THYROX 4. Special screening examination for viral disease - ICD9: V73.99, ICD10: Z11.59 - HEPATITIS C ANTIBODY IA WITH CONFIRMATION 5. Screening for HIV (human immunodeficiency virus) - ICD9: V73.89, ICD10: Z11.4 - HIV 1 2 COMBO(AG/AB),WITH REFLEX TO DIFFERENTIATION 6. Elevated cholesterol - ICD9: 272.0, ICD10: E78.00 - CBC + DIFF - COMP METABOLIC PANEL - LIPID PANEL BASIC 7. Screening for malignant neoplasm of prostate - ICD9: V76.44, ICD10: Z12.5 - PSA/PROSTSPECAG SCRN 8. Vitamin D deficiency - ICD9: 268.9, ICD10: E55.9 - VITAMIN D 25 HYDROXY 9. Lumbar pain - ICD9: 724.2, ICD10: M54.50 - XR LUMBAR GENERAL 3V AP/LAT/L5-S1 10. Chronic pain of right knee - ICD9: 719.46, 338.29, ICD10: M25.561, G89.29 - XR KNEE GENERAL 4V AP BOTH/PA BOTH/LAT/MERC RIGHT 11. Snoring - ICD9: 786.09, ICD10: R06.83 - HOME SLEEP APNEA TEST (HSAT) Medical Decision Making: Problems: Moderate: New problem with uncertain prognosis Risk: Moderate: Moderate risk from testing/treatment and Drug management Medical Decision Making Level: 4 - Moderate Arlette Hernandez MD [facility]* Diagnosis Encounter to establish care- Primary Other reasons for seeking consultation Vision changes Unspecified visual disturbance Other fatigue Special screening examination for viral disease Special screening examination for unspecified viral disease Screening for HIV (human immunodeficiency virus) Special screening examination for other specified viral diseases Elevated cholesterol Pure hypercholesterolemia Screening for malignant neoplasm of prostate Vitamin D deficiency Unspecified vitamin D deficiency Lumbar pain Lumbago Chronic pain of right knee Snoring Other dyspnea and respiratory abnormality documented in this encounter [facility] note* Diagnosis Vitamin D deficiency- Primary Unspecified vitamin D deficiency Special screening examination for viral disease Special screening examination for unspecified viral disease Screening for HIV (human immunodeficiency virus) Special screening examination for other specified viral diseases Screening for prostate cancer Special screening for malignant neoplasm of prostate Elevated cholesterol Pure hypercholesterolemia [facility]* Diagnosis IFG (impaired fasting glucose)- Primary Impaired fasting glucose documented [facility]* Diagnosis Hyperlipidemia, unspecified hyperlipidemia type- Primary Screen for colon cancer Special screening for malignant neoplasms, colon Snoring Other dyspnea and respiratory abnormality Sinus pressure Other diseases of nasal cavity and sinuses documented in this encounter [facility] note* Diagnosis Headache around the eyes Headache Facial pressure Eye pressure Other ill-defined disorder of eye [facility]* Diagnosis Routine general medical examination at a health care facility- Primary Screening for depression Encounter for screening examination for other mental health and behavioral disorders RUQ pain Abdominal pain, right upper quadrant Heart murmur Undiagnosed cardiac murmurs Hyperlipidemia, unspecified hyperlipidemia type documented [facility] this [facility]* Diagnosis Hyperlipidemia, unspecified hyperlipidemia type- Primary documented in this [facility]* Diagnosis Fatty liver- Primary Other chronic nonalcoholic liver disease documented in this encounter [facility] noteNo assessment information availableWDoctors Hospital Work Phone: Evaluation note* Diagnosis Onset Date Resolution Status Admit Date Bloating acute April 23 3:19pm Hepatosplenomegaly acute March 272024 3:19pm [facility] Work Phone: Reason for referral (narrative)No reason for referral information availableWDoctors Hospital Work Phone: Reason for Referral Specialty Diagnoses / Procedures Referred By Contac t Referred To Contact Ophthalmology Diagnoses Vision changes Procedures CONSULT TO [facility]PHTHALMOLOGY OFFICE[facility] 60 [place] [id number] [place] [address] Referral ID Status Reason Start Date Expiration Date Visits Requested Visits Authorized [id number] Authorized PCP Requested Referral 11/22/2023 11/21/2024 1 1 Specialty Diagnoses / Procedures Referred By Contac t Referred To Contact [facility] Diagnoses Snoring Procedures HOME SLEEP APNEA TEST (HSAT) SLEEP STD AIRFLOW HRT RATE&O2 [place] [id number] [place] [address] [facility] [address] [place] [id number] Referral ID Status Reason Start Date Expiration Date Visits Requested Visits Authorized [id number] Pending Review Auto-Generat ed Referral 11/22/2023 11/21/2024 1 1 Specialty Diagnoses / Procedures Referred By Contac t Referred To Contact XR IMAGING Diagnoses Lumbar pain Procedures XR LUMBAR GENERAL 3V AP/LAT/L5-S1 RADEX SPINE LUMBOSACRAL 2/[place] [address] [place] [id number] [place] [address] Referral ID Status Reason Start Date Expiration Date Visits Requested Visits Authorized [id number] Pending Review Auto-Generat ed Referral 11/22/2023 12/21/2024 1 1 Specialty Diagnoses / Procedures Referred By Contac t Referred To Contact XR IMAGING Diagnoses Chronic pain of right knee Procedures XR KNEE GENERAL 4V AP BOTH/PA BOTH/LAT/MERC RIGHT RADIOLOGIC EXAM KNEE COMPLETE 4/[place] [address] [address] [place] [address] Referral ID Status Reason Start Date Expiration Date Visits Requested Visits Authorized [id number] Pending Review Auto-Generat ed Referral 11/22/2023 12/21/2024 1 1 Specialty Diagnoses / Procedures Referred By Contac t Referred To Contact Ent - Otolaryngology Diagnoses Sinus pressure Procedures CONSULT TO ENT OFFICE/OUTPATIENT NEW HIGH MDM 60 [place] [address] [address] Referral ID Status Reason Start Date Expiration Date Visits Requested Visits Authorized [id number] Authorized PCP Requested Referral 10/09/2024 10/09/2025 1 1 Referral ID Status Reason Start Date Expiration Date Visits Requested Visits Authorized [id number] New Request Auto-Generat ed Referral 10/09/2024 10/09/2025 1 1 Specialty Diagnoses / Procedures Referred By Contac t Referred To Contact Gastroenterology Diagnoses Screen for colon cancer Procedures CONSULT TO GASTROENTEROLOGY OFFICE/OUTPATIENT NEW HIGH MDM 60 MINUTES Ar[place] [id number] [address] Referral ID Status Reason Start Date Expiration Date Visits Requested Visits Authorized [id number] Authorized PCP Requested Referral 10/09/2024 10/09/2025 1 1 Summary Purpose Family History Relationship Condition Age at Onset Recorded Date/T jose mother Cardiac disease Unknown Advance Directives No Advanced Directives Records FoundNo Advanced Directives Records FoundNo Advanced Directives Records Found Chief Complaint and Reason for Visit Chief Complaint Admit Date RUQ PAIN, Include Spleen March 29, 2025 10:10am Chief Complaint Admit Date RUQ PAIN, Include Spleen March 29, 2025 10:10am ABDOMINAL PAIN April 23, 2025 3:19 pm Reason for Visit Admit Date Bloating April 23, 2025 3:19 pm Hepatosplenomegaly April 23, 2025 3:19 pm Chief Complaint Admit Date RUQ PAIN, Include Spleen March 29, 2025 10:10am ABDOMINAL PAIN April 23, 2025 3:19 pm INT LAB ORDERS April 23, 2025 4:31 pm Additional Source Comments Source Comments (unrecognize d section and content) In the event this informatio n is protected by the Federal Confidentiality of Alcohol and Drug Abuse Patient Records regulations: The Federal rules restrict any use of the information to criminally investigate or prosecute any alcohol or drug abuse patient.[facility] the event this information is protected by the Federal Confidentiality of Alcohol and Drug Abuse Patient Records regulations: The Federal rules restrict any use of the information to criminally investigate or prosecute any alcohol or drug abuse patient.[facility] Hospital[facility] the event this information is protected by the Federal Confidentiality of Alcohol and Drug Abuse Patient Records regulations: The Federal rules restrict any use of the information to criminally investigate or prosecute any alcohol or drug abuse patient.[facility] Hospital[facility] the event this information is protected by the Federal Confidentiality of Alcohol and Drug Abuse Patient Records regulations: The Federal rules restrict any use of the information to criminally investigate or prosecute any alcohol or drug abuse patient.[facility] Hospital[facility] the event this information is protected by the Federal Confidentiality of Alcohol and Drug Abuse Patient Records regulations: The Federal rules restrict any use of the information to criminally investigate or prosecute any alcohol or drug abuse patient.[facility] HospitalIn the event this information is protected by the Federal Confidentiality of Alcohol and Drug Abuse Patient Records regulations: The Federal rules restrict any use of the information to criminally investigate or prosecute any alcohol or drug abuse patient.[facility] HospitalIn the event this information is protected by the Federal Confidentiality of Alcohol and Drug Abuse Patient Records regulations: The Federal rules restrict any use of the information to criminally investigate or prosecute any alcohol or drug abuse patient.[facility] Hospital[facility] the event this information is protected by the Federal Confidentiality of Alcohol and Drug Abuse Patient Records regulations: The Federal rules restrict any use of the information to criminally investigate or prosecute any alcohol or drug abuse patient.[facility] Reason for Visit (unrecogniz ed section and content) Reason Comments Establish Care Bilateral lower legs and low back pain Reason Comments Lab Orders Reason Comments Results Orders Reason Comments Follow Up Reason Comments New Patient Sore Throat Pt stated that he's been experiencing sinus pressure which is causing headaches. Specialty Diagnoses / Procedures Referred By Nano barber Referred To Contact Ent - Otolaryngology Diagnoses Sinus pressure Procedures CONSULT TO ENT OFFICE/OUTPATIENT NEW HIGH MDM 60 [place] [address] [place] [address] Phone: tel: fax: Referral ID Status Reason Start Date Expiration Date V isits Requested Visits Authorized [id number] Closed PCP Requested Referral 10/09/2024 10/09/2025 1 1 Reason Comments Physical Reason Comments u/s of abdomen results Care Teams (unrecognized sec tion and content) Optical Systems Engineer Relationship Specialty [place] [address] [place] [address] PCP - General Internal Medicine 09/29/23 Optical Systems Engineer Relationship Specialty [place] [address] [place] [address] PCP - General Internal Medicine 09/29/23 Nael William PA-C [address] [place] [address] [address] [place] [address] [employer] Machine Operator Internal Medicine 09/02/24 Optical Systems Engineer Relationship Specialty Start Date End Date Arlette Hernandez MD [address] [place] [address] [address] PCP - General Internal Medicine 09/29/23 Nael William PA-C [address] [place] [address] [address] [place] [address] [employer] Operator Internal Medicine 09/02/24 Optical Systems Engineer Relationship Specialty Start Date End Date Arlette Hernandez MD [address] [place] [address] PCP - General Internal Medicine 09/29/23 Nael William PA-C [address] [place] [address] [address] [place] [address] [employer] Operator Internal Medicine 09/02/24 Optical Systems Engineer Relationship Specialty [place] [address] [address] PCP - General Internal Medicine 09/29/23 Nael William PA-C [address] [place] [address] [address] [place] [address] [employer] Operator Internal Medicine 09/02/24 Optical Systems Engineer Relationship Specialty [place] [address] [place] [address] PCP - General Internal Medicine 09/29/23 Nael William PA-C [address] [place] [address] [employer] Machine Operator Internal Medicine 09/02/24 Optical Systems Engineer Relationship Specialty [place] [address] [facility] [address] [place] [address] PCP - General Internal Medicine 09/29/23 Michelle Summers PA-C [address] [facility] [address] [place] [address] [employer] Machine Operator Internal Medicine 02/24/25 Team Status: Active Member Role/Relationship Status Dates ARLETTE OPRISESCU Primary Care Provider Active Team Status: Inactive Member Role/Relationship Status Dates ARLETTE, OPRISESCU Primary Care Provider Active Sta rt: March 29, 2025 End: March 29, 2025 ARLETTE, OPRISESCU Attending Provider Active Start: March 29, 2025 End: March 29, 2025 ARLETTE, OPRISESCU Referring Provider Active Start: March 29, 2025 End: March 29, 2025 Team Status: Inactive Member Role/Relationship Status Dates Dr. Destin Gupta DO Attending Provider Active Start: April 23, 2025 End: April 23, 2025 ARLETTE, OPRISESCU Primary Care Provider Active Sta rt: April 23, 2025 End: April 23, 2025 ARLETTE, OPRISESCU Referring Provider Active Start: April 23, 2025 End: April 23, 2025 Team Status: Inactive Member Role/Relationship Status Dates ARLETTE, OPRISESCU Primary Care Provider Active Sta rt: March 29, 2025 End: March 29, 2025 ARLETTE, OPRISESCU Attending Provider Active Start: March 29, 2025 End: March 29, 2025 ARLETTE, OPRISESCU Referring Provider Active Start: March 29, 2025 End: March 29, 2025 Team Status: Inactive Member Role/Relationship Status Dates Dr. Destin Gupta DO Attending Provider Active Start: April 23, 2025 End: April 23, 2025 ARLETTE, OPRISESCU Primary Care Provider Active Sta rt: April 23, 2025 End: April 23, 2025 ARLETTE, OPRISESCU Referring Provider Active Start: April 23, 2025 End: April 23, 2025 Team Status: Inactive Member Role/Relationship Status Dates Dr. Destin Gupta DO Attending Provider Active Start: April 23, 2025 End: April 23, 2025 Dr. Destin Gupta DO Referring Provider Active Start: April 23, 2025 End: April 23, 2025 (unrecognized sect ion and content) No Status Records FoundNo Status Records FoundNo Status Records Found INFORMATION SOURCE (unrecogn ized section and content) DATE CREATED AUTHOR 11/15/2024 [facility] DATE CREATED AUTHOR AUTHOR'S ORGANIZ ATION 04/05/2025 [facility] DATE CREATED AUTHOR AUTHOR'S ORGANIZ ATION 05/03/[address] [facility] Goals (unrecognized section and content) Goals may be documented in a n alternate sectionGoals may be documented in an alternate sectionGoals may be documented in an alternate section FOR RECORDS PERTAINING TO PATIENTS WHO ARE OR HAVE BEEN ENROLLED IN A CHEMICAL DEPENDENCY/SUBSTANCEABUSE PROGRAM, SOME INFORMATION MAY BE OMITTED. This clinical summary was aggregated from multiple sources. Caution should be exercised in using it in the provision of clinical care. This summary normalizes information from multiple sources, and as a consequence, information in this document may materially change the coding, format and clinical context of patient data. In addition, data may be omitted in some cases. CLINICAL DECISIONS SHOULD BE BASED ON THE PRIMARY CLINICAL RECORDS. [employer] provides no warranty or guarantee of the accuracy or completeness of information in this document.
[2025-05-10 08:53] LABS: CPK Total, Creatine Kinase 79 U/L (24-195)
[2025-05-12 16:08] LABS: H. PYLORI STOOL AG Negative (Negative); Pancreatic Elastase, Fecal 212 (>200)
== END | disposition home or self-care (01) ==
LOC: LABSPEC 07:13
PROVIDERS: Referring Provider Internal Medicine Gastroenterology; Visit Provider Internal Medicine Gastroenterology
DX: R16.2 Hepatomegaly with splenomegaly, not elsewhere classified (principal); R14.0 Abdominal distension (gaseous)
CPT/HCPCS: 36415; 82550; 82653; 87177; 87209; 87329; 87338